=== PATIENT | female | born 1955 | race Caucasian/White ===

== ENCOUNTER 2019-06-06 08:56 | Day surgery (SDC) | payer BC ==
[~2019-06-06 08:56] MED LIST: Lactated Ringers 1,000 ML IV SCH; Lidocaine 1% 4 ML ONE; Lidocaine 1%/Sod Bicarbonate in NS 8.4% 1 ML Syringe IDERM PRN; Midazolam 1 MG/ML 2 ML SDV ONE; Propofol 200 MG/20 ML SDV ONE; Sodium Chloride 0.9% 10 ML Syringe FLUSH PRN; fentaNYL 100 MCG/2 ML SDV ONE
--- NOTE | 2019-06-06 09:33 | PCM.PREANE ---
Preanesthetic Assessment - Anesthesia/Transfusion/Family Hx Anesthesia History: Prior Anesthesia Without Reaction Family History of Anesthesia Reaction: No Transfusion History: No Prior Transfusion(s) Intubation History: Unknown - Review of Systems General: No Symptoms Pulmonary: No Symptoms, Cough (chronic for 3 years due to sinus drainage.) Cardiovascular: No Symptoms (elevated cholesterol) Gastrointestinal: No Symptoms (History of gastritis-improved) Neurological: No Symptoms (lower back pain into right hip: 4/10) Other: Reports: None (Idiopathic thrombocytopenia, ), Sinus Problem (sinus drainage) - Physical Assessment NPO Status Date: 06/06/19 NPO Status Time: 04:30 (prep) Vital Signs: HR: 74 BP: 138/83 Resp: 16 Sat: 98% Temp: 97.1 Height: 1.63 m Weight: 77.564 kg ASA Class: 2 Mental Status: Alert & Oriented x3 Airway Class: Mallampati = 2 Dentition: Reports: Normal Dentition, Caries Thyro-Mental Finger Breadths: 3 Mouth Opening Finger Breadths: 3 ROM/Head Extension: Full Lungs: Clear to Auscultation, Normal Respiratory Effort Cardiovascular: Regular Rate, Regular Rhythm, No Murmurs - Lab Values: All labs reviewed and noted and within acceptable ranges to proceed with scheduled procedure. - Allergies Allergies/Adverse Reactions: Allergies Allergy/AdvReac Type Severity Reaction Status Date / Time No Known Allergies Allergy Verified 06/03/19 13:49 - Anesthesia Plan Pre-Op Medication Ordered: None - Acknowledgements Anesthesia Type Planned: MAC Pt an Appropriate Candidate for the Planned Anesthesia: Yes Alternatives and Risks of Anesthesia Discussed w Pt/Guardian: Yes Pt/Guardian Understands and Agrees with Anesthesia Plan: Yes PreAnesthesia Questionnaire HEENT History: Reports: Impaired Vision, Other (See Below) Other HEENT History: glasses Cardiovascular History: Reports: High Cholesterol Respiratory History: Reports: None Gastrointestinal History: Reports: Gastritis 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 Musculoskeletal History: Reports: Arthritis Neurological History: Reports: None Psychiatric History: Reports: None Endocrine/Metabolic History: Reports: Vitamin D Deficiency Hematologic History: Reports: None Immunologic History: Reports: None Oncologic (Cancer) History: Reports: None Dermatologic History: Reports: Other (See Below) Other Dermatologic History: seborrheic keratosis - Past Surgical History Head Surgeries/Procedures: Reports: None Cardiovascular Surgical History: Reports: None Respiratory Surgical History: Reports: None GI Surgical History: Reports: None Female Surgical History: Reports: Hysterectomy Male Surgical History: Reports: None Endocrine Surgical History: Reports: None Neurological Surgical History: Reports: None Musculoskeletal Surgical History: Reports: Arthroscopic Knee Oncologic Surgical History: Reports: None Dermatological Surgical History: Reports: None - SUBSTANCE USE Smoking Status *Q: Never Smoker Recreational Drug Use History: No - HOME MEDS Home Medications: Home Meds Cholecalciferol (Vitamin D3) [Vitamin D3] 1,000 unit PO DAILY 06/03/19 [History] Glucosam/Chondr/Collagn/Hyalur [Glucosamine & Chondroitin Cap] 1 cap PO DAILY [History] Ibuprofen 600 mg PO TID 06/03/19 [History] Melatonin 3 mg PO DAILY 06/03/19 [History] Multivitamin [Daily Multiple Vitamin] 1 tab PO DAILY 06/03/19 [History] Phentermine HCl 37.5 mg PO DAILY 06/03/19 [History] atorvaSTATin Calcium [Lipitor] 20 mg PO DAILY 06/03/19 [History] - CURRENT (IN HOUSE) MEDS Current Meds: Current Medications Lactated Ringer's (Ringers, Lactated) 1,000 mls @ 125 mls/hr IV ASDIRECTED LOVE Stop: 06/06/19 23:00 Lidocaine/Sodium Bicarbonate (Buffered Lidocaine 1% In Ns 8.4%) 0.25 ml IDERM ONETIME PRN PRN Reason: Prior to IV Start Stop: 06/06/19 18:00 Sodium Chloride (Saline Flush) 10 ml FLUSH ASDIRECTED PRN PRN Reason: Keep Vein Open Stop: 06/06/19 18:00 Discontinued Medications Fentanyl (Sublimaze) Confirm Administered Dose 100 mcg .ROUTE .STK-MED ONE Stop: 06/06/19 07:28 Lidocaine HCl (Xylocaine-Mpf 1%) Confirm Administered Dose 4 mls @ as directed .ROUTE .STK-MED ONE Stop: 06/06/19 07:28 Midazolam HCl (Versed 1 Mg/Ml) Confirm Administered Dose 2 mg .ROUTE .STK-MED ONE Stop: 06/06/19 07:29 Propofol (Diprivan 20 Ml) Confirm Administered Dose 200 mg .ROUTE .STK-MED ONE Stop: 06/06/19 07:28
[2019-06-06] MEDS ORDERED: Propofol 200 MG/20 ML SDV ONE (10:55)
[2019-06-06] MEDS ORDERED: Lactated Ringers 1,000 ML ONE (11:08)
--- NOTE | 2019-06-06 11:42 | PCM.PRNOTE ---
- Free Text/Narrative Note: Date: 06/06/2019 Procedure: screening colonoscopy Endoscopist: Isreal Philip MD Findings: Prep seemed excellent. Extremely difficult sigmoid to navigate, could not traverse with the colonoscope despite various attempts at abdominal maneuvers and patient repositioning. Mild mucosal trauma noted from scope. After over 30 minutes of trying to advance, the procedure was stopped. There was a small flat lesion in the sigmoid that appeared consistent with a hyperplastic polyp that was not biopsied. Detailed report: The patient was taken to the endoscopy suite and placed in left lateral decubitus position. Timeout was performed, and monitored anesthesia initiated. Visual inspection of the anus showed no gross abnormalities, digital rectal exam was benign. The colonoscope was then advanced. Prep appeared to be excellent. Navigation with the scope proved to be very difficult, and at about 40 cm from the anal verge, the sigmoid became impossible to traverse. Multiple attempts were made to assist in advancing the scope, including abdominal maneuvers, patient repositioning into the supine position. Water dissection with the irrigation and air insufflation could not provide satisfactory view of the lumen at the sharp angle. After attempting to make progress for over 30 minutes, the procedure was stopped. There was mild mucosal trauma noted from the endoscope. No active bleeding noted. There was a small polypoid lesion in the sigmoid that appeared consistent with a hyperplastic polyp. This was not biopsied. No diverticulosis or other pathology was noted on withdrawal of the scope from the sigmoid. The patient tolerated the procedure well. I would recommend repeat colonoscopy within the year with referral to gastroenterology. Isreal Philip MD General Surgery
--- NOTE | 2019-06-06 11:48 | PCM48HPAN ---
Post Anesthesia Note - EVALUATION WITHIN 48HRS OF ANESTHETIC Vital Signs in Normal Range: Yes Patient Participated in Evaluation: Yes Respiratory Function Stable: Yes Airway Patent: Yes Cardiovascular Function Stable: Yes Hydration Status Stable: Yes Pain Control Satisfactory: Yes Nausea and Vomiting Control Satisfactory: Yes Mental Status Recovered: Yes Vital Signs: Last Vital Signs Temp 97.1 F 06/06/19 09:15 Pulse 74 06/06/19 09:15 Resp 16 06/06/19 09:15 BP 138/83 06/06/19 09:15 Pulse Ox 98 06/06/19 09:15 1135 85 14 97.1 104/68 94% - COMMENTS/OBSERVATIONS Free Text/Narrative:: complains of some abdominal discomfort
== END 2019-06-06 12:30 | disposition home or self-care (01) ==
LOC: JD.SDS 08:56
PROVIDERS: ATTEND Surgery
DX: Z12.11 Encounter for screening for malignant neoplasm of colon (principal); K63.9 Disease of intestine, unspecified; E78.5 Hyperlipidemia, unspecified; E55.9 Vitamin D deficiency, unspecified; M19.90 Unspecified osteoarthritis, unspecified site; Z79.899 Other long term (current) drug therapy
CPT/HCPCS: J2001; J2250; J2704; J3010; J7120

== ENCOUNTER 2020-02-02 16:30 | Inpatient (IN) | payer BC ==
--- NOTE | 2020-02-02 17:03 | EDM.PDOC ---
ED HPI GENERAL MEDICAL PROBLEM - General Chief Complaint: Lower Extremity Injury/Pain Stated Complaint: LT HIP INJURY Time Seen by Provider: 02/02/20 16:47 Source of Information: Reports: Patient History Limitations: Reports: No Limitations - History of Present Illness INITIAL COMMENTS - FREE TEXT/NARRATIVE: 64-year-old female presents to the ED for evaluation of left hip and groin pain. She was up at the [place] this morning and was walking down a flight of stairs backwards. She missed the last 2 stairs and fell hard landing on her left hip. She heard and felt a loud crack at that time. She was able to crawl back up the stairs into the home. She has all her grandchildren at the cabin and had to call for help. At present she is not able to weight-bear at all on the left hip. She denies hitting her head or hurting her neck ribs or upper extremities. She did twist her left ankle but she says it does not hurt at this time and there is minimal swelling only on the lateral aspect. He is unable to lift the leg off the gurney. Onset: Today, Sudden Onset Date: 02/02/20 Onset Time: 10:30 Duration: Hour(s):, Getting Worse Location: Reports: Lower Extremity, Left (Left groin and hip pain. No pain in the left lateral ankle) Quality: Reports: Ache Severity: Moderate Improves with: Reports: Rest Worsens with: Reports: Movement Context: Reports: Trauma (Tripped and fell while walking down a flight of stairs backwards. Missed the last 2 stairs falling hard on her left hip). 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 Left Groin Pain Score (Numeric/FACES): 5 - Related Data Allergies Allergy/AdvReac Type Severity Reaction Status Date / Time No Known Allergies Allergy Verified 06/06/19 09:31 Home Meds: Home Meds Cholecalciferol (Vitamin D3) [Vitamin D3] 1,000 unit PO BID 06/03/19 [History] Glucosam/Chondr/Collagn/Hyalur [Glucosamine & Chondroitin Cap] 1 cap PO BID 06/03/19 [History] Melatonin 3 mg PO DAILY 06/03/19 [History] Multivitamin [Daily Multiple Vitamin] 1 tab PO DAILY 06/03/19 [History] Phentermine HCl 37.5 mg PO ASDIRECTED 06/03/19 [History] atorvaSTATin Calcium [Lipitor] 20 mg PO BEDTIME 06/03/19 [History] Past Medical History HEENT History: Reports: Impaired Vision, Other (See Below) Other HEENT History: glasses Cardiovascular History: Reports: High Cholesterol Respiratory History: Reports: None Gastrointestinal History: Reports: Gastritis 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 As low as it ever went was down to 30,000.) Immunologic History: Reports: None Oncologic (Cancer) History: Reports: None Dermatologic History: Reports: Other (See Below) Other Dermatologic History: seborrheic keratosis - Infectious Disease History Infectious Disease History: Reports: Chicken Pox, Measles - Past Surgical History Head Surgeries/Procedures: Reports: None Cardiovascular Surgical History: Reports: None Respiratory Surgical History: Reports: None GI Surgical History: Reports: None Female Surgical History: Reports: Hysterectomy Endocrine Surgical History: Reports: None Neurological Surgical History: Reports: None Musculoskeletal Surgical History: Reports: Arthroscopic Knee Oncologic Surgical History: Reports: None Dermatological Surgical History: Reports: None Social & Family History - Tobacco Use Smoking Status *Q: Never Smoker - Caffeine Use Caffeine Use: Reports: Coffee, Soda, Tea - Recreational Drug Use Recreational Drug Use: No - Living Situation & Occupation Living situation: Reports: Occupation: Employed Review of Systems - Review of Systems Review Of Systems: See Below Constitutional: Reports: No Symptoms Eyes: Reports: Glasses Ears: Reports: No Symptoms Nose: Reports: No Symptoms Mouth/Throat: Reports: No Symptoms Respiratory: Reports: No Symptoms Cardiovascular: Reports: No Symptoms GI/Abdominal: Reports: No Symptoms Genitourinary: Reports: No Symptoms, Other (Patient has had a vaginal hysterectomy.) Musculoskeletal: Reports: Joint Pain (Knee pain off and on. She had recurrent patellofemoral dislocations and had a screw placed in her knee teenager. She has had a arthroscopy since with removal of debris.) Skin: Reports: No Symptoms Neurological: Reports: No Symptoms Psychiatric: Reports: No Symptoms ED EXAM, GENERAL - Physical Exam Exam: See Below Exam Limited By: No Limitations General Appearance: Alert, WD/WN, No Apparent Distress, Other (Very stoic lady. Temperature is 36.0 pulse is 70 and sinus respiratory is 20 with O2 sats of 99% room air BP slightly elevated at 149/77.) Eye Exam: Bilateral Eye: Normal Inspection, PERRL Throat/Mouth: Normal Inspection, Normal Lips, Normal Oropharynx Head: Atraumatic, Normocephalic Neck: Normal Inspection, Supple, Non-Tender, Full Range of Motion. No: Carotid Bruit, Lymphadenopathy (L), Lymphadenopathy (R) Respiratory/Chest: No Respiratory Distress, Lungs Clear, Normal Breath Sounds, No Accessory Muscle Use, Chest Non-Tender, Other (No rib pain on firm c ompression of her) Cardiovascular: Normal Peripheral Pulses, Regular Rate, Rhythm, No Edema, No Gallop, No Murmur ( thorax.), No Rub Peripheral Pulses: 3+: Carotid (L), Carotid (R), Posterior Tibial (L), Posterior Tibial (R), Dorsalis Pedis (L), Dorsalis Pedis (R) GI/Abdominal: Normal Bowel Sounds, Soft, Non-Tender, No Organomegaly, No Distention, No Abnormal Bruit, No Mass, Pelvis Stable Back Exam: Normal Inspection Extremities: Other (Patient has a normal right lower extremity. On the left side she is unable to lift the leg off the gurney on her own volition because of pain in the groin. She also can no longer rotate the leg at the groin i.e. internal and external rotate. There is no pain on firm compression of the ischial tuberosities on exam. There is pain on firm compression of the left lateral hip.) Neurological: Alert, Oriented, CN II-XII Intact, Normal Cognition Psychiatric: Normal Affect, Normal Mood Skin Exam: Warm, Dry, Intact, Normal Color, No Rash Course - Vital Signs Last Recorded V/S: Last Vital Signs Temp 36.0 C L 02/02/20 16:53 Pulse 70 02/02/20 16:53 Resp 20 02/02/20 16:53 BP 149/77 H 02/02/20 16:53 Pulse Ox 99 02/02/20 16:53 - Orders/Labs/Meds Orders: Active Orders 24 hr Category Date Time Status CORONAVIRUS COVID-19 LADI [MOLEC] Stat Lab 02/02/20 18:23 Received CULTURE MRSA [RM] Stat Lab 02/02/20 18:42 Ordered PRO B-TYPE NATRIUR PEPT,BNPPRO [CHEM] Stat Lab 02/02/20 18:05 Received TYPE AND SCREEN [BBK] Stat Lab 02/02/20 18:20 Ordered Labs: Laboratory Tests 02/02/20 02/02/20 02/02/20 Range/Units 18:05 18:05 18:08 WBC 9.03 (3.98-10.04) K/mm3 RBC 4.94 (3.98-5.22) M/mm3 Hgb 14.6 (11.2-15.7) gm/dl Hct 44.2 (34.1-44.9) % MCV 89.5 (79.4-94.8) fl MCH 29.6 (25.6-32.2) pg MCHC 33.0 (32.2-35.5) g/dl RDW Std Deviation 47.5 H (36.4-46.3) fL Plt Count 145 L (182-369) K/mm3 MPV 11.8 (9.4-12.3) fl Neut % (Auto) 68.6 (34.0-71.1) % Lymph % (Auto) 20.9 (19.3-51.7) % [place] % (Auto) 9.0 (4.7-12.5) % Eos % (Auto) 0.6 L (0.7-5.8) Baso % (Auto) 0.7 (0.1-1.2) % Neut # (Auto) 6.20 H (1.56-6.13) K/mm3 Lymph # (Auto) 1.89 (1.18-3.74) K/mm3 [place] # (Auto) 0.81 H (0.24-0.36) K/mm3 Eos # (Auto) 0.05 (0.04-0.36) K/mm3 Baso # (Auto) 0.06 (0.01-0.08) K/mm3 PT 11.2 (9.7-12.0) SECONDS INR 1.05 APTT 24 (22-31) SECONDS Sodium 141 (136-145) mEq/L Potassium 3.6 (3.5-5.1) mEq/L Chloride 104 (98-107) mEq/L Carbon Dioxide 28 (21-32) mEq/L Anion Gap 12.6 (5-15) BUN 12 (7-18) mg/dL Creatinine 0.7 (0.55-1.02) mg/dL Est Cr Clr Drug Dosing 71.96 mL/min Estimated GFR (MDRD) > 60 (>60) mL/min BUN/Creatinine Ratio 17.1 (14-18) Glucose 94 (80-115) mg/dL Calcium 9.1 (8.5-10.1) mg/dL Magnesium 2.1 (1.8-2.4) mg/dl Total Bilirubin 0.8 (0.2-1.0) mg/dL AST 22 (15-37) U/L ALT 30 (14-59) U/L Alkaline Phosphatase 77 (46-116) U/L C-Reactive Protein <0.2 (<1.0) mg/dL Total Protein 8.0 (6.4-8.2) g/dl Albumin 4.3 (3.4-5.0) g/dl Globulin 3.7 gm/dL Albumin/Globulin Ratio 1.2 (1-2) Meds: Medications Discontinued Medications Generic Name Dose Route Start Last Admin Trade Name Freq PRN Reason Stop Dose Admin Cyclobenzaprine HCl 10 mg 02/02/20 18:06 02/02/20 18:27 Flexeril PO 02/02/20 18:07 10 mg ONETIME ONE Administration Hydromorphone HCl 0.5 mg 02/02/20 18:31 02/02/20 18:37 Dilaudid IVPUSH 02/02/20 18:32 0.5 mg ONETIME ONE Administration Dextrose/Sodium Chloride 1,000 mls @ 125 mls/hr 02/02/20 17:45 Dextrose 5%-Normal Saline IV ASDIRECTED LOVE Ondansetron HCl 4 mg 02/02/20 18:31 02/02/20 18:37 Zofran Odt PO 02/02/20 18:32 4 mg ONETIME ONE Administration - Radiology Interpretation Free Text/Narrative:: 64-year-old female presents to the ED for evaluation of left hip pain and groin pain. She was walking down a flight of stairs at the cabin [place] the [place] this morning when she missed the last 2 stairs and fell hard to the ground landing primarily on her left hip. She did suffer a minor minor inversion injury to her left ankle as well but clinically has no fracture in this area. She is unable to weight-bear on the left side. She is also unable to lift the leg off the gurney on her own volition. Plan she will have an x-ray of her pelvis and an x- ray of her left femur. Offered analgesia but at this time she declined. - Re-Assessments/Exams Free Text/Narrative Re-Assessment/Exam: 02/02/20 17:38 x-ray of the pelvis confirms a fracture through the high neck of the left femur. It is confirmed on x-ray of the femur which shows a screw in her left knee. Fractures in the pelvis are identified. Patient will now have preoperative lab work including a chest x-ray ECG and COVID screen. Due to lack of beds at our hospital she will have to be transferred to [place] tentatively [facility] for bone and joint surgery 02/02/20 18:06 I did discuss possible transfer to [facility] in [place] but they are on diversion and could not accept the patient in transfer. I therefore spoke with Dr. Bragg on-call orthopedic surgeon and he believes he has time to do a total hip on her tomorrow at noon. We found that there is a bed on the obstetrical floor where the patient can stay overnight and in preparation for surgery tomorrow. Therefore this will be the plan. She will require total hip replacement tomorrow at noon tentatively. Patient is requesting Flexeril 10 mg by mouth at this time for his muscle spasm. She did not want any narcotic analgesic at this time. Dr. Bragg has been notified and is in agreement and he will see her in the morning. 02/02/20 18:25 test x-ray done per portable technique suggests normal cardiac silhouette. However it suggests diffuse vascular congestion of both lungs. This may be due to overpenetration by portable technique. I will have a BNP carried out to reassure that she does not have any congestive failure.White count is 9.03. Differential is 68.6% neutrophils on the auto differential. Hemoglobin is 14.6 with hematocrit of 44.2 platelet count is 145,000( history of idiopathic thrombocytopenia) . 02/02/20 18:34 and has decided to opt for a little bit of analgesia since she has to use the bedpan. We will give her Zofran 4 mg IV and Dilaudid 0.5 mg IV. 02/02/20 18:46 PT is 11.2 with an INR of 1.05. PTT is 24. Sodium is 141 with a potassium of 3.6 chloride is 104 with a bicarb of 28. Anion gap is 12.6 BUN is 12 with a creatinine of 0.7 and a GFR greater than 60. Glucose is 94. Calcium is 9.1. Magnesium is 2.1. Liver function is normal. C-reactive protein is less than 0.2 total protein is 8.0 . Albumin fraction is 4.3. Urinalysis is pending. Write the bridge orders so the patient can be admitted to the obstetrical floor. Dr. Bragg will see her in consultation in the mail messenger contractor. Departure - Departure Time of Disposition: 18:52 Disposition: Admitted As Inpatient 68 Condition: Fair Clinical Impression: Femoral neck fracture Qualifiers: Encounter type: initial encounter Fracture type: closed Laterality: left Qualified Code(s): S72.002A - Fracture of unspecified part of neck of left femur, initial encounter for closed fracture Sprain of ankle, calcaneofibular ligament Qualifiers: Encounter type: initial encounter Laterality: left Qualified Code(s): S93.412A - Sprain of calcaneofibular ligament of left ankle, initial encounter - Discharge Information *PRESCRIPTION DRUG MONITORING PROGRAM REVIEWED*: Not Applicable *COPY OF PRESCRIPTION DRUG MONITORING REPORT IN PATIENT MAEGAN: Not Applicable Referrals: Maisha Zepeda MD [Primary Care Provider] - Forms: ED Department Discharge Sepsis Event Note (ED) - Evaluation Sepsis Screening Result: No Definite Risk - Focused Exam Vital Signs: Vital Signs Temp Pulse Resp BP Pulse Ox 02/02/20 16:53 36.0 C L 70 20 149/77 H 99 - My Orders Last 24 Hours: My Active Orders 02/02/20 18:05 PRO B-TYPE NATRIUR PEPT,BNPPRO [CHEM] Stat 02/02/20 18:23 CORONAVIRUS COVID-19 LADI [MOLEC] Stat - Assessment/Plan Last 24 Hours: My Active Orders 02/02/20 18:05 PRO B-TYPE NATRIUR PEPT,BNPPRO [CHEM] Stat 02/02/20 18:23 CORONAVIRUS COVID-19 LADI [MOLEC] Stat
--- NOTE | 2020-02-02 17:34 | CR ---
Left femur: AP and lateral views of the left femur were obtained. Comparison: No previous femur study is available. Subcapital fracture is noted within the left hip. Mild degenerative change is noted within the knee. Single surgical screw is seen within the proximal tibia. Osteopenia is noted. Impression: 1. Subcapital fracture within the left hip. 2. Other nonacute findings as noted above. Diagnostic code #3 This report was dictated in MDT
--- NOTE | 2020-02-02 17:35 | CR ---
Pelvis: AP view of the pelvis was obtained. Comparison: Prior pelvis study of 07/15/19. Subcapital fracture within the left hip is noted. Joint space narrowing is noted within the right hip. Osteopenia is seen. No additional abnormality is noted. Impression: 1. Subcapital fracture within the left hip. 2. Other findings as noted above. Diagnostic code #3 This report was dictated in MDT
[2020-02-02] MEDS ORDERED: Dextrose 5%-0.9% NaCl 1,000 ML IV SCH (17:45)
[2020-02-02] MEDS ORDERED: Cyclobenzaprine 10 MG Tab PO ONE (18:06)
[2020-02-02] MEDS ORDERED: Ondansetron 4 MG Tab.DIS PO ONE (18:31)
[2020-02-02] MEDS ORDERED: HYDROmorphone 0.5 MG/0.5 ML Syringe IVPUSH ONE (18:31)
--- NOTE | 2020-02-02 18:35 | CR ---
Chest: Portable view of the chest was obtained. Comparison: No previous chest imaging is available. Heart is felt to be slightly enlarged. Pulmonary vessels may be minimally congested. Lungs otherwise are clear. Bony structures are unremarkable. Impression: 1. Slight cardiomegaly and questionable mild pulmonary vascular congestion. This may be chronic. 2. Nothing acute is otherwise seen on portable chest x-ray. Diagnostic code #3 This report was dictated in MDT
--- NOTE | 2020-02-02 19:51 | PCM.PREANE ---
Preanesthetic Assessment - Anesthesia/Transfusion/Family Hx Anesthesia History: Prior Anesthesia Without Reaction Family History of Anesthesia Reaction: No Transfusion History: No Prior Transfusion(s) Intubation History: Unknown - Review of Systems General: No Symptoms Pulmonary: No Symptoms (ETOH: socially), Cough (History of cough due to sinus drainage-improved) Cardiovascular: No Symptoms (Elevated cholesterol) Gastrointestinal: No Symptoms (History of gastritis) Neurological: No Symptoms (History of lower back pain- currently none) Other: Reports: None (History of idiopathic thrombocytopenia), Sinus Problem (History of sinus drainage) - Physical Assessment NPO Status Date: 02/03/20 NPO Status Time: 00:05 Vital Signs: Last Vital Signs Temp 36.0 C L 02/02/20 16:53 Pulse 70 02/02/20 16:53 Resp 20 02/02/20 16:53 BP 149/77 H 02/02/20 16:53 Pulse Ox 99 02/02/20 16:53 Height: 1.63 m Weight: 70.307 kg ASA Class: 2 Mental Status: Alert & Oriented x3 Airway Class: Mallampati = 2 Dentition: Reports: Normal Dentition, Protivin(s), Caries Thyro-Mental Finger Breadths: 3 Mouth Opening Finger Breadths: 3 ROM/Head Extension: Full Lungs: Clear to Auscultation, Normal Respiratory Effort Cardiovascular: Regular Rate, Regular Rhythm, No Murmurs - Lab Values: Laboratory Last Values WBC 9.03 K/mm3 (3.98-10.04) 02/02/20 18:08 RBC 4.94 M/mm3 (3.98-5.22) 02/02/20 18:08 Hgb 14.6 gm/dl (11.2-15.7) 02/02/20 18:08 Hct 44.2 % (34.1-44.9) 02/02/20 18:08 MCV 89.5 fl (79.4-94.8) 02/02/20 18:08 MCH 29.6 pg (25.6-32.2) 02/02/20 18:08 MCHC 33.0 g/dl (32.2-35.5) 02/02/20 18:08 RDW Std Deviation 47.5 fL (36.4-46.3) H 02/02/20 18:08 Plt Count 145 K/mm3 (182-369) L 02/02/20 18:08 MPV 11.8 fl (9.4-12.3) 02/02/20 18:08 Neut % (Auto) 68.6 % (34.0-71.1) 02/02/20 18:08 Lymph % (Auto) 20.9 % (19.3-51.7) 02/02/20 18:08 [place] % (Auto) 9.0 % (4.7-12.5) 02/02/20 18:08 Eos % (Auto) 0.6 (0.7-5.8) L 02/02/20 18:08 Baso % (Auto) 0.7 % (0.1-1.2) 02/02/20 18:08 Neut # (Auto) 6.20 K/mm3 (1.56-6.13) H 02/02/20 18:08 Lymph # (Auto) 1.89 K/mm3 (1.18-3.74) 02/02/20 18:08 [place] # (Auto) 0.81 K/mm3 (0.24-0.36) H 02/02/20 18:08 Eos # (Auto) 0.05 K/mm3 (0.04-0.36) 02/02/20 18:08 Baso # (Auto) 0.06 K/mm3 (0.01-0.08) 02/02/20 18:08 PT 11.2 SECONDS (9.7-12.0) 02/02/20 18:05 INR 1.05 02/02/20 18:05 APTT 24 SECONDS (22-31) 02/02/20 18:05 Sodium 141 mEq/L (136-145) 02/02/20 18:05 Potassium 3.6 mEq/L (3.5-5.1) 02/02/20 18:05 Chloride 104 mEq/L (98-107) 02/02/20 18:05 Carbon Dioxide 28 mEq/L (21-32) 02/02/20 18:05 Anion Gap 12.6 (5-15) 02/02/20 18:05 BUN 12 mg/dL (7-18) 02/02/20 18:05 Creatinine 0.7 mg/dL (0.55-1.02) 02/02/20 18:05 Est Cr Clr Drug Dosing 71.96 mL/min 02/02/20 18:05 Estimated GFR (MDRD) > 60 mL/min (>60) 02/02/20 18:05 BUN/Creatinine Ratio 17.1 (14-18) 02/02/20 18:05 Glucose 94 mg/dL (80-115) 02/02/20 18:05 Calcium 9.1 mg/dL (8.5-10.1) 02/02/20 18:05 Magnesium 2.1 mg/dl (1.8-2.4) 02/02/20 18:05 Total Bilirubin 0.8 mg/dL (0.2-1.0) 02/02/20 18:05 AST 22 U/L (15-37) 02/02/20 18:05 ALT 30 U/L (14-59) 02/02/20 18:05 Alkaline Phosphatase 77 U/L (46-116) 02/02/20 18:05 C-Reactive Protein <0.2 mg/dL (<1.0) 02/02/20 18:05 NT-Pro-B Natriuret Pep 72 pg/mL (0-125) 02/02/20 18:05 Total Protein 8.0 g/dl (6.4-8.2) 02/02/20 18:05 Albumin 4.3 g/dl (3.4-5.0) 02/02/20 18:05 Globulin 3.7 gm/dL 02/02/20 18:05 Albumin/Globulin Ratio 1.2 (1-2) 02/02/20 18:05 Blood Type A POSITIVE 02/02/20 18:05 Gel Antibody Screen Negative 02/02/20 18:05 Above labs reviewed and noted and within acceptable ranges to proceed with scheduled procedure. - Imaging/EKG Impressions: EKG:SR rate=64, diffuse T wave flattening in leads V2-V5, mild left axis deviation noted. CXR: Slight cardiomegaly and questionable pulmonary vasculature congestion. (awaiting results of BNP) - Allergies Allergies/Adverse Reactions: Allergies Allergy/AdvReac Type Severity Reaction Status Date / Time No Known Allergies Allergy Verified 06/06/19 09:31 - Anesthesia Plan Pre-Op Medication Ordered: None - Acknowledgements Anesthesia Type Planned: Spinal Pt an Appropriate Candidate for the Planned Anesthesia: Yes Alternatives and Risks of Anesthesia Discussed w Pt/Guardian: Yes Pt/Guardian Understands and Agrees with Anesthesia Plan: Yes PreAnesthesia Questionnaire HEENT History: Reports: Impaired Vision, Other (See Below) Other HEENT History: glasses Cardiovascular History: Reports: High Cholesterol Respiratory History: Reports: None Gastrointestinal History: Reports: Gastritis 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 As low as it ever went was down to 30,000.) Immunologic History: Reports: None Oncologic (Cancer) History: Reports: None Dermatologic History: Reports: Other (See Below) Other Dermatologic History: seborrheic keratosis - Infectious Disease History Infectious Disease History: Reports: Chicken Pox, Measles - Past Surgical History Head Surgeries/Procedures: Reports: None Cardiovascular Surgical History: Reports: None Respiratory Surgical History: Reports: None GI Surgical History: Reports: None Female Surgical History: Reports: Hysterectomy Endocrine Surgical History: Reports: None Neurological Surgical History: Reports: None Musculoskeletal Surgical History: Reports: Arthroscopic Knee Oncologic Surgical History: Reports: None Dermatological Surgical History: Reports: None - SUBSTANCE USE Smoking Status *Q: Never Smoker Recreational Drug Use History: No - HOME MEDS Home Medications: Home Meds Cholecalciferol (Vitamin D3) [Vitamin D3] 1,000 unit PO BID 06/03/19 [History] Glucosam/Chondr/Collagn/Hyalur [Glucosamine & Chondroitin Cap] 1 cap PO BID 06/03/19 [History] Melatonin 3 mg PO DAILY 06/03/19 [History] Multivitamin [Daily Multiple Vitamin] 1 tab PO DAILY 06/03/19 [History] Phentermine HCl 37.5 mg PO ASDIRECTED 06/03/19 [History] atorvaSTATin Calcium [Lipitor] 20 mg PO BEDTIME 06/03/19 [History] - CURRENT (IN HOUSE) MEDS Current Meds: Current Medications Dextrose/Sodium Chloride (Dextrose 5%-Normal Saline) 1,000 mls @ 125 mls/hr IV ASDIRECTED LOVE Discontinued Medications Cyclobenzaprine HCl (Flexeril) 10 mg PO ONETIME ONE Stop: 02/02/20 18:07 Last Admin: 02/02/20 18:27 Dose: 10 mg Documented by: Hydromorphone HCl (Dilaudid) 0.5 mg IVPUSH ONETIME ONE Stop: 02/02/20 18:32 Last Admin: 02/02/20 18:37 Dose: 0.5 mg Documented by: Ondansetron HCl (Zofran Odt) 4 mg PO ONETIME ONE Stop: 02/02/20 18:32 Last Admin: 02/02/20 18:37 Dose: 4 mg Documented by:
[2020-02-02] MEDS ORDERED: HYDROmorphone 0.5 MG/0.5 ML Syringe IVPUSH PRN (21:04)
[2020-02-02] MEDS ORDERED: Ondansetron 4 MG/2 ML SDV IVPUSH PRN (21:04)
[2020-02-02] MEDS ORDERED: Dextrose 5%-0.9% NaCl with KCl 1,000 ML IV SCH (21:15)
[2020-02-02] MEDS ORDERED: Zolpidem 10 MG Tab PO SCH (23:00)
[2020-02-03] MEDS ORDERED: Cyclobenzaprine 10 MG Tab PO PRN (08:48)
[2020-02-03] MEDS ORDERED: Acetaminophen/oxyCODONE 325-5 MG Tab PO PRN (08:48)
[2020-02-03] MEDS ORDERED: Naloxone 0.4 MG/ML SDV IVPUSH PRN (08:49)
[2020-02-03] MEDS ORDERED: Sennosides 8.6 MG Tab PO PRN (08:49)
[2020-02-03] MEDS ORDERED: Bisacodyl 5 MG Tab PO PRN (08:49)
[2020-02-03] MEDS ORDERED: Ondansetron 4 MG/2 ML SDV IVPUSH PRN ×2 (08:49→13:15)
[2020-02-03] MEDS ORDERED: Magnesium Hydroxide 400 MG/5 ML Susp 30 ML Cup PO PRN (08:49)
[2020-02-03] MEDS ORDERED: ceFAZolin 1 GM Vial ONE (11:03)
--- NOTE | 2020-02-03 11:16 | PCM.CONS ---
H&P History of Present Illness - General Date of Service: 02/03/20 Admit Problem/Dx: Admission Diagnosis/Problem Admission Diagnosis/Problem Hip fracture requiring operative repair Source of Information: Patient History Limitations: Reports: No Limitations - History of Present Illness Initial Comments - Free Text/Narative: The patient is a 64 yo female. She presented to the ED on 02/02/2020 after experiencing a fall while going up stairs at her [place] and falling backward, landing on her hip. She heard loud crack and had severe weakness in left hip, crawled back up her stairs to call for help. This happened at about 9AM yesterday. She did not hit her head. She denies pain anywhere else. She is not on blood thinning medications, no anticoagulation. She denies history of internal bleeding or blood clots. No familial history of blood clots. She does not use CPAP or oxygen at home. The patient has hypercholesterolemia but otherwise has no cardiac history. The patient denies dizziness, no chest pain, no shortness of breath. She does have allergic rhinitis but otherwise has not been ill. No fevers or chills. No foot or ankle swelling. Last BM was on 01/31. She denies blood or dark stools. Left Groin Pain Score (Numeric/FACES): 5 - Related Data Allergies/Adverse Reactions: Allergies Allergy/AdvReac Type Severity Reaction Status Date / Time No Known Allergies Allergy Verified 02/03/20 00:07 Home Medications: Home Meds Cholecalciferol (Vitamin D3) [Vitamin D3] 1,000 unit PO BID 06/03/19 [History] Glucosam/Chondr/Collagn/Hyalur [Glucosamine & Chondroitin Cap] 1 cap PO BID 06/03/19 [History] Melatonin 3 mg PO DAILY 06/03/19 [History] Multivitamin [Daily Multiple Vitamin] 1 tab PO DAILY 06/03/19 [History] Phentermine HCl 37.5 mg PO ASDIRECTED 06/03/19 [History] atorvaSTATin Calcium [Lipitor] 20 mg PO BEDTIME 06/03/19 [History] Acetaminophen [Tylenol] 1,000 mg PO ONETIME 02/03/20 [History] Past Medical History HEENT History: Reports: Impaired Vision, Other (See Below) Other HEENT History: glasses Cardiovascular History: Reports: High Cholesterol Respiratory History: Reports: None Other Respiratory History: Chronic cough d/t sinuses Gastrointestinal History: Reports: Gastritis Genitourinary History: Reports: None [employer] History: Reports: None Other OB/BYN History: Previous pregnancies x2 Musculoskeletal History: Reports: Arthritis Neurological History: Reports: None Psychiatric History: Reports: None Endocrine/Metabolic History: Reports: Vitamin D Deficiency Hematologic History: Reports: None, Idiopathic Thrombocytopenia (Platelet count about 3 years ago was 90,000. As low as it ever went was down to 30,000.) Immunologic History: Reports: None Oncologic (Cancer) History: Reports: None Dermatologic History: Reports: Other (See Below) Other Dermatologic History: seborrheic keratosis - Infectious Disease History Infectious Disease History: Reports: Chicken Pox, Measles - Past Surgical History Head Surgeries/Procedures: Reports: None Cardiovascular Surgical History: Reports: None Respiratory Surgical History: Reports: None GI Surgical History: Reports: None Female Surgical History: Reports: Hysterectomy Endocrine Surgical History: Reports: None Neurological Surgical History: Reports: None Musculoskeletal Surgical History: Reports: Arthroscopic Knee Oncologic Surgical History: Reports: None Dermatological Surgical History: Reports: None Social & Family History - Family History Family Medical History: Noncontributory - Tobacco Use Smoking Status *Q: Never Smoker - Caffeine Use Caffeine Use: Reports: Coffee, Soda, Tea - Recreational Drug Use Recreational Drug Use: No - Living Situation & Occupation Living situation: Reports: Occupation: Employed H&P Review of Systems - Review of Systems: Review Of Systems: Comprehensive ROS is negative, except as noted in HPI. Exam - Exam Exam: See Below - Vital Signs Vital Signs: Last Vital Signs Temp 98.1 F 02/03/20 04:25 Pulse 85 02/03/20 04:25 Resp 16 02/03/20 04:25 BP 115/65 02/03/20 04:25 Pulse Ox 97 02/03/20 04:25 Weight: 165 lb - Exam General: Alert, Oriented, Cooperative HEENT: Conjunctiva Clear, EOMI, Mucosa Moist & [place], Pupils Equal, Pupils Reactive Lungs: Clear to Auscultation, Normal Respiratory Effort. No: Crackles, Rales, Rhonchi, Wheezing Cardiovascular: Regular Rate, Regular Rhythm. No: Systolic Murmur, Diastolic Murmur, Rubs Extremities: No Pedal Edema, Normal Capillary Refill Peripheral Pulses: 2+: Posterior Tibial (L), Posterior Tibial (R) Skin: Warm, Dry, Intact - Patient Data Lab Results Last 24 hrs: Laboratory Results - last 24 hr 02/02/20 02/02/20 02/02/20 Range/Units 18:05 18:05 18:05 WBC (3.98-10.04) K/mm3 RBC (3.98-5.22) M/mm3 Hgb (11.2-15.7) gm/dl Hct (34.1-44.9) % MCV (79.4-94.8) fl MCH (25.6-32.2) pg MCHC (32.2-35.5) g/dl RDW Std Deviation (36.4-46.3) fL Plt Count (182-369) K/mm3 MPV (9.4-12.3) fl Neut % (Auto) (34.0-71.1) % Lymph % (Auto) (19.3-51.7) % [place] % (Auto) (4.7-12.5) % Eos % (Auto) (0.7-5.8) Baso % (Auto) (0.1-1.2) % Neut # (Auto) (1.56-6.13) K/mm3 Lymph # (Auto) (1.18-3.74) K/mm3 [place] # (Auto) (0.24-0.36) K/mm3 Eos # (Auto) (0.04-0.36) K/mm3 Baso # (Auto) (0.01-0.08) K/mm3 PT 11.2 (9.7-12.0) SECONDS INR 1.05 APTT 24 (22-31) SECONDS Sodium 141 (136-145) mEq/L Potassium 3.6 (3.5-5.1) mEq/L Chloride 104 (98-107) mEq/L Carbon Dioxide 28 (21-32) mEq/L Anion Gap 12.6 (5-15) BUN 12 (7-18) mg/dL Creatinine 0.7 (0.55-1.02) mg/dL Est Cr Clr Drug Dosing 71.96 mL/min Estimated GFR (MDRD) > 60 (>60) mL/min BUN/Creatinine Ratio 17.1 (14-18) Glucose 94 (80-115) mg/dL Calcium 9.1 (8.5-10.1) mg/dL Magnesium 2.1 (1.8-2.4) mg/dl Total Bilirubin 0.8 (0.2-1.0) mg/dL AST 22 (15-37) U/L ALT 30 (14-59) U/L Alkaline Phosphatase 77 (46-116) U/L C-Reactive Protein <0.2 (<1.0) mg/dL NT-Pro-B Natriuret Pep (0-125) pg/mL Total Protein 8.0 (6.4-8.2) g/dl Albumin 4.3 (3.4-5.0) g/dl Globulin 3.7 gm/dL Albumin/Globulin Ratio 1.2 (1-2) SARS Virus RNA (PCR) (NEGATIVE) MRSA (PCR) Blood Type A POSITIVE Gel Antibody Screen Negative 02/02/20 02/02/20 02/02/20 Range/Units 18:05 18:08 18:23 WBC 9.03 (3.98-10.04) K/mm3 RBC 4.94 (3.98-5.22) M/mm3 Hgb 14.6 (11.2-15.7) gm/dl Hct 44.2 (34.1-44.9) % MCV 89.5 (79.4-94.8) fl MCH 29.6 (25.6-32.2) pg MCHC 33.0 (32.2-35.5) g/dl RDW Std Deviation 47.5 H (36.4-46.3) fL Plt Count 145 L (182-369) K/mm3 MPV 11.8 (9.4-12.3) fl Neut % (Auto) 68.6 (34.0-71.1) % Lymph % (Auto) 20.9 (19.3-51.7) % [place] % (Auto) 9.0 (4.7-12.5) % Eos % (Auto) 0.6 L (0.7-5.8) Baso % (Auto) 0.7 (0.1-1.2) % Neut # (Auto) 6.20 H (1.56-6.13) K/mm3 Lymph # (Auto) 1.89 (1.18-3.74) K/mm3 [place] # (Auto) 0.81 H (0.24-0.36) K/mm3 Eos # (Auto) 0.05 (0.04-0.36) K/mm3 Baso # (Auto) 0.06 (0.01-0.08) K/mm3 PT (9.7-12.0) SECONDS INR APTT (22-31) SECONDS Sodium (136-145) mEq/L Potassium (3.5-5.1) mEq/L Chloride (98-107) mEq/L Carbon Dioxide (21-32) mEq/L Anion Gap (5-15) BUN (7-18) mg/dL Creatinine (0.55-1.02) mg/dL Est Cr Clr Drug Dosing mL/min Estimated GFR (MDRD) (>60) mL/min BUN/Creatinine Ratio (14-18) Glucose (80-115) mg/dL Calcium (8.5-10.1) mg/dL Magnesium (1.8-2.4) mg/dl Total Bilirubin (0.2-1.0) mg/dL AST (15-37) U/L ALT (14-59) U/L Alkaline Phosphatase (46-116) U/L C-Reactive Protein (<1.0) mg/dL NT-Pro-B Natriuret Pep 72 (0-125) pg/mL Total Protein (6.4-8.2) g/dl Albumin (3.4-5.0) g/dl Globulin gm/dL Albumin/Globulin Ratio (1-2) SARS Virus RNA (PCR) Negative (NEGATIVE) MRSA (PCR) Blood Type Gel Antibody Screen 02/02/20 Range/Units 19:52 WBC (3.98-10.04) K/mm3 RBC (3.98-5.22) M/mm3 Hgb (11.2-15.7) gm/dl Hct (34.1-44.9) % MCV (79.4-94.8) fl MCH (25.6-32.2) pg MCHC (32.2-35.5) g/dl RDW Std Deviation (36.4-46.3) fL Plt Count (182-369) K/mm3 MPV (9.4-12.3) fl Neut % (Auto) (34.0-71.1) % Lymph % (Auto) (19.3-51.7) % [place] % (Auto) (4.7-12.5) % Eos % (Auto) (0.7-5.8) Baso % (Auto) (0.1-1.2) % Neut # (Auto) (1.56-6.13) K/mm3 Lymph # (Auto) (1.18-3.74) K/mm3 [place] # (Auto) (0.24-0.36) K/mm3 Eos # (Auto) (0.04-0.36) K/mm3 Baso # (Auto) (0.01-0.08) K/mm3 PT (9.7-12.0) SECONDS INR APTT (22-31) SECONDS Sodium (136-145) mEq/L Potassium (3.5-5.1) mEq/L Chloride (98-107) mEq/L Carbon Dioxide (21-32) mEq/L Anion Gap (5-15) BUN (7-18) mg/dL Creatinine (0.55-1.02) mg/dL Est Cr Clr Drug Dosing mL/min Estimated GFR (MDRD) (>60) mL/min BUN/Creatinine Ratio (14-18) Glucose (80-115) mg/dL Calcium (8.5-10.1) mg/dL Magnesium (1.8-2.4) mg/dl Total Bilirubin (0.2-1.0) mg/dL AST (15-37) U/L ALT (14-59) U/L Alkaline Phosphatase (46-116) U/L C-Reactive Protein (<1.0) mg/dL NT-Pro-B Natriuret Pep (0-125) pg/mL Total Protein (6.4-8.2) g/dl Albumin (3.4-5.0) g/dl Globulin gm/dL Albumin/Globulin Ratio (1-2) SARS Virus RNA (PCR) (NEGATIVE) MRSA (PCR) Negative Blood Type Gel Antibody Screen Result Diagrams: 02/02/20 18:08 02/02/20 18:05 Sepsis Event Note - Evaluation Sepsis Screening Result: No Definite Risk Consult PN Assessment/Plan (1) Femoral neck fracture SNOMED Code(s): 5595330 Code(s): S72.009A - FRACTURE OF UNSP PART OF NECK OF UNSP FEMUR, INIT Current Visit: No Qualifiers: Encounter type: initial encounter Fracture type: closed Laterality: left Qualified Code(s): S72.002A - Fracture of unspecified part of neck of left femur, initial encounter for closed fracture Assessment:: Low cardiac risk for surgery- Estimated risk probability for perioperative LA or Cardiac arrest is 0.02% The patient's pain is controlled Vitals normal, HR controlled Mg, potassium, sodium normal EKG shows normal sinus rhythm, flattened T waves, no ST elevation or depression, unremarkable EKG (2) Hypercholesterolemia SNOMED Code(s): 17956642 Code(s): E78.00 - PURE HYPERCHOLESTEROLEMIA, UNSPECIFIED Current Visit: Yes Assessment:: Lipid profile in My 2019 shows: Triglycerides 211, Cholesterol 167, LDL 95, HDL 40 Patient is on atorvastatin 20mg oral qpm at home (3) Osteopenia determined by x-ray SNOMED Code(s): 815517175 Code(s): M85.80 - OTH DISRD OF BONE DENSITY AND STRUCTURE, UNSPECIFIED SITE Current Visit: Yes Assessment:: Home medication of Vitamin D 2,000 u daily Problem List Initiated/Reviewed/Updated: Yes Plan: Left femur fracture after fall - The patient is medically cleared for surgery - ORIF today at noon per orthopedic surgery - DVT prophylaxis per ortho as stated below - Pain control described below Hypercholesterolemia - Continue atorvastatin 20mg qpm tomorrow night - Will recheck lipid profile, has been >1yr - Will check HgbA1c for further risk stratification Osteopenia - Continue Vitamin D supplementation Pain Control - acetaminophen 650mg q6h for mild pain, Oxycodone/acetaminophen 5/325 1-2 tabs q4h as needed for moderate pain, morphine 1-2mg IV q2h as needed severe pain PROPHYLAXIS GI - per ortho, pepcid 20mg BID DVT - per ortho, aspirin 325mg oral BID, will watch h/h and platelet counts Cardiovascular- EKG and cardiac enzymes after surgery SOCIAL Lives at home, no tobacco use, fully independent CODE STATUS Full Code DISPOSITION Patient is admitted to hospital under Dr. Bragg, orthopedic surgeon, hospitalist team consulted for medical clearance. Patient is cleared for surgery today.
[2020-02-03] MEDS ORDERED: Midazolam 1 MG/ML 2 ML SDV ONE (11:36)
[2020-02-03] MEDS ORDERED: fentaNYL 100 MCG/2 ML SDV ONE (11:36)
[2020-02-03] MEDS ORDERED: Propofol 200 MG/20 ML SDV ONE (11:36)
[2020-02-03] MEDS ORDERED: Morphine PF 10 MG/10 ML SDV ONE (11:38)
[2020-02-03] MEDS ORDERED: Bupivacaine 0.75% 30 ML SDV ONE (11:38)
[2020-02-03] MEDS ORDERED: EPINEPHrine 1 MG/ML SDV ONE (11:41)
[2020-02-03] MEDS ORDERED: Ketamine 500 mg/10 ML MDV ONE (11:45)
[2020-02-03] MEDS ORDERED: Acetaminophen 325 MG Tab PO STA (11:48)
[2020-02-03] MEDS ORDERED: Pregabalin 25 MG Cap PO STA (11:48)
[2020-02-03] MEDS ORDERED: oxyCODONE ER 10 MG TAB.ER PO STA (11:49)
[2020-02-03] MEDS: ceFAZolin 1 GM Vial ONE ×2 (12:52→13:27)
[2020-02-03] MEDS: Bupivacaine 0.25% 10 ML SDV ONE ×2 (12:52→13:31)
[2020-02-03] MEDS: Iodine/Sodium Iodide 2% Tincture 30 ML Bottle ONE ×2 (12:52→13:26)
[2020-02-03] MEDS: Vancomycin 1 GM SDV ONE ×2 (12:53→13:33)
[2020-02-03] MEDS: Morphine 8 MG, EPINEPHrine 0.3 MG, Cefuroxime 750 MG, Ketorolac 30 MG, Sodium Chloride ... PRN ×10 (12:53→13:32)
[2020-02-03] MEDS ORDERED: fentaNYL 100 MCG/2 ML SDV IVPUSH PRN (13:15)
[2020-02-03] MEDS ORDERED: diphenhydrAMINE 50 MG/ML SDV IVPUSH PRN (13:15)
[2020-02-03] MEDS ORDERED: Ondansetron 4 MG/2 ML SDV ONE (13:26)
[2020-02-03] MEDS ORDERED: Morphine 2 MG/ML SYRINGE IVPUSH PRN (14:00)
--- NOTE | 2020-02-03 14:13 | PCM.POSTAN ---
POST ANESTHESIA ASSESSMENT - MENTAL STATUS Mental Status: Alert, Oriented - VITAL SIGNS Vital Signs: Last Vital Signs Temp 97.8 F 02/03/20 14:02 Pulse 75 02/03/20 14:02 Resp 14 02/03/20 14:02 BP 91/55 L 02/03/20 14:02 Pulse Ox 93 L 02/03/20 14:02 - RESPIRATORY Respiratory Status: Respiratory Rate WNL, Airway Patent, O2 Saturation Stable, Supplemental Oxygen - CARDIOVASCULAR CV Status: Pulse Rate WNL, Blood Pressure Stable - GASTROINTESTINAL GI Status: No Symptoms - PAIN Pain Score: 0 (post SAB) - POST OP HYDRATION Hydration Status: Adequate & Stable
--- NOTE | 2020-02-03 16:22 | CR ---
Pelvis and right hip: AP view of the pelvis was obtained as well as crosstable lateral views left hip. Comparison: Prior pelvis study of 02/02/20. Left hip prosthesis is seen. Components are aligned. This hip prosthesis has been recently placed as soft tissue air is seen. Degenerative change is seen within the right hip. No acute finding is otherwise seen. Impression: 1. Recently placed left hip prosthesis. 2. Degenerative change of the right hip. 3. Nothing acute is appreciated. Diagnostic code #2 This report was dictated in MDT
[2020-02-03] MEDS: ceFAZolin 2 GM in Premix Bag 1 BAG IV SCH (20:02)
[2020-02-03] MEDS ORDERED: Zolpidem 10 MG Tab PO SCH (21:00)
[2020-02-03] MEDS ORDERED: Simvastatin 20 MG Tab PO SCH (21:00)
[2020-02-03] MEDS ORDERED: Melatonin 3 MG Tab PO PRN ×2 (21:00→21:16)
[2020-02-03] MEDS ORDERED: Lactated Ringers 1,000 ML IV ONE (21:15)
[2020-02-03] MEDS: Famotidine 20 MG Tab PO SCH (22:27)
[2020-02-03] MEDS: Docusate Sodium 100 MG Cap PO SCH (22:27)
[2020-02-03] MEDS: Cholecalciferol (Vitamin D3) 25 MCG Tab PO SCH (22:27)
[2020-02-03] MEDS: Ketorolac 15 MG/ML SDV IVPUSH PRN (23:03)
[2020-02-04] MEDS: ceFAZolin 2 GM in Premix Bag 1 BAG IV SCH ×2 (03:40→11:40)
[2020-02-04] MEDS: Ketorolac 15 MG/ML SDV IVPUSH PRN ×2 (06:07→12:08)
[2020-02-04 07:15] LABS: HEMOGLOBIN A1C 5.8 % (4.50-6.20)
[2020-02-04] MEDS: Famotidine 20 MG Tab PO SCH (09:00)
[2020-02-04] MEDS ORDERED: Multivitamins,Therapeutic Tab PO SCH (09:00)
[2020-02-04] MEDS ORDERED: Aspirin 325 MG Tab.EC PO SCH (09:00)
[2020-02-04] MEDS: Cholecalciferol (Vitamin D3) 25 MCG Tab PO SCH (09:18)
[2020-02-04] MEDS: Docusate Sodium 100 MG Cap PO SCH (09:18)
--- NOTE | 2020-02-04 13:38 | PCM.CONSN ---
- General Info Date of Service: 02/04/20 Admission Dx/Problem (Free Text): Admission Diagnosis/Problem Admission Diagnosis/Problem Hip fracture requiring operative repair Subjective Update: Patient had a low-grade fever 100.6. She has had dry cough for approximately 3 years, but otherwise feels fine. She has been up and walking and doing her exercise. Functional Status: Reports: Pain Controlled - Review of Systems General: Reports: Fever HEENT: Reports: No Symptoms Pulmonary: Reports: Cough Cardiovascular: Reports: No Symptoms Gastrointestinal: Reports: No Symptoms Musculoskeletal: Reports: No Symptoms Skin: Reports: No Symptoms Psychiatric: Reports: No Symptoms - Patient Data Vitals - Most Recent: Last Vital Signs Temp 99.6 F 02/04/20 10:51 Pulse 94 02/04/20 09:10 Resp 15 02/04/20 11:00 BP 123/72 02/04/20 09:10 Pulse Ox 99 02/04/20 11:00 Weight - Most Recent: 74.843 kg I&O - Last 24 Hours: Intake & Output 02/03/20 02/04/20 02/04/20 22:59 06:59 14:59 Intake Total 1500 Output Total 730 842 8188 Balance 700 -850 -1900 Lab Results Last 24 Hours: Laboratory Results - last 24 hr 02/04/20 02/04/20 02/04/20 Range/Units 05:32 05:32 05:32 WBC 5.93 (3.98-10.04) K/mm3 RBC 3.61 L (3.98-5.22) M/mm3 Hgb 10.5 L D (11.2-15.7) gm/dl Hct 33.8 L (34.1-44.9) % MCV 93.6 D (79.4-94.8) fl MCH 29.1 (25.6-32.2) pg MCHC 31.1 L (32.2-35.5) g/dl RDW Std Deviation 49.5 H (36.4-46.3) fL Plt Count 89 L (182-369) K/mm3 MPV 12.6 H (9.4-12.3) fl Sodium 137 (136-145) mEq/L Potassium 3.8 (3.5-5.1) mEq/L Chloride 103 (98-107) mEq/L Carbon Dioxide 28 (21-32) mEq/L Anion Gap 9.8 (5-15) BUN 7 (7-18) mg/dL Creatinine 0.8 (0.55-1.02) mg/dL Est Cr Clr Drug Dosing 62.96 mL/min Estimated GFR (MDRD) > 60 (>60) mL/min BUN/Creatinine Ratio 8.8 L (14-18) Glucose 101 (80-115) mg/dL Hemoglobin A1c 5.80 (4.50-6.20) % Calcium 8.0 L (8.5-10.1) mg/dL Creatine Kinase 526 H (26-192) U/L Troponin I < 0.017 (0.00-0.056) ng/mL Triglycerides 160 H (<150) mg/dL Cholesterol 108 (<200) mg/dL LDL Cholesterol Direct 52 (<100) mg/dL HDL Cholesterol 35.0 L (40-59) mg/dL Med Orders - Current: Current Medications Aspirin (Ecotrin) 325 mg PO BID [facility] Last Admin: 02/04/20 09:00 Dose: 325 mg Documented by: Bisacodyl (Dulcolax) 5 mg PO DAILY PRN PRN Reason: Constipation Cholecalciferol (Vitamin D3) 25 mcg PO BID [facility] Last Admin: 02/04/20 09:18 Dose: Not Given Documented by: Cyclobenzaprine HCl (Flexeril) 10 mg PO TID PRN PRN Reason: Spasms Docusate Sodium (Colace) 100 mg PO BID [facility] Last Admin: 02/04/20 09:18 Dose: Not Given Documented by: Famotidine (Pepcid) 20 mg PO Q12H [facility] Last Admin: 02/04/20 09:00 Dose: 20 mg Documented by: Magnesium Hydroxide (Milk Of Magnesia) 30 ml PO BID PRN PRN Reason: Constipation Melatonin (Melatonin) 3 mg PO BEDTIME PRN PRN Reason: Insomnia Morphine Sulfate (Morphine) 1 - 2 mg IVPUSH Q2H PRN PRN Reason: Pain (severe 7-10) Multivitamins (Thera) 1 each PO DAILY [facility] Last Admin: 02/04/20 09:18 Dose: Not Given Documented by: Naloxone HCl (Narcan) 0.1 mg IVPUSH Q5M PRN PRN Reason: Oversedation Ondansetron HCl (Zofran) 4 mg IVPUSH Q6H PRN PRN Reason: Nausea/Vomiting Oxycodone/Acetaminophen (Percocet 325-5 Mg) 1 - 2 tab PO Q4H PRN PRN Reason: Pain Senna (Senna) 8.6 mg PO BID PRN PRN Reason: Constipation Simvastatin (Zocor) 20 mg PO BEDTIME [facility] Last Admin: 02/03/20 22:28 Dose: Not Given Documented by: Discontinued Medications Acetaminophen (Tylenol) 975 mg PO ONETIME STA Stop: 02/03/20 11:49 Last Admin: 02/03/20 12:00 Dose: 975 mg Documented by: Bupivacaine HCl (Sensorcaine-Mpf 0.25%) Confirm Administered Dose 30 ml .ROUTE .STK-MED ONE Stop: 02/03/20 11:04 Last Admin: 02/03/20 13:31 Dose: 30 ml Documented by: Bupivacaine HCl (Sensorcaine-Mpf 0.75%) Confirm Administered Dose 30 ml .ROUTE .STK-MED ONE Stop: 02/03/20 11:39 Cefazolin Sodium (Ancef) Confirm Administered Dose 2 gm .ROUTE .STK-MED ONE Stop: 02/03/20 11:04 Cefazolin Sodium (Ancef) Confirm Administered Dose 2 gm .ROUTE .STK-MED ONE Stop: 02/03/20 11:42 Last Admin: 02/03/20 13:27 Dose: 2 gm Documented by: Morphine Sulfate 8 mg/Epinephrine HCl 0.3 mg/Cefuroxime Sodium 750 mg/Ketorolac Tromethamine 30 mg/Sodium Chloride 7.9 ml 0 mg .XX ASDIRECTED PRN PRN Reason: Pain Stop: 02/03/20 16:00 Last Admin: 02/03/20 13:32 Dose: 788.3 mg Documented by: Cyclobenzaprine HCl (Flexeril) 10 mg PO ONETIME ONE Stop: 02/02/20 18:07 Last Admin: 02/02/20 18:27 Dose: 10 mg Documented by: Diphenhydramine HCl (Benadryl) 25 mg IVPUSH Q6H PRN PRN Reason: Pruritis Stop: 02/03/20 18:00 Epinephrine HCl (Adrenalin) Confirm Administered Dose 1 mg .ROUTE .STK-MED ONE Stop: 02/03/20 11:42 Fentanyl (Sublimaze) Confirm Administered Dose 100 mcg .ROUTE .STK-MED ONE Stop: 02/03/20 11:37 Fentanyl (Sublimaze) 50 mcg IVPUSH Q5M PRN PRN Reason: Pain Stop: 02/03/20 18:00 Glycopyrrolate () Confirm Administered Dose 1 mg .ROUTE .STK-MED ONE Stop: 02/03/20 15:15 Hydromorphone HCl (Dilaudid) 0.5 mg IVPUSH ONETIME ONE Stop: 02/02/20 18:32 Last Admin: 02/02/20 18:37 Dose: 0.5 mg Documented by: Hydromorphone HCl (Dilaudid) 0.5 mg IVPUSH Q2H PRN PRN Reason: Pain Last Admin: 02/03/20 04:41 Dose: 0.5 mg Documented by: Dextrose/Sodium Chloride (Dextrose 5%-Normal Saline) 1,000 mls @ 125 [facility]ls[facility] Last Admin: 02/02/20 19:51 Dose: 125 mls/hr Documented by: Potassium Chloride/Dextrose/Sod Cl (D5 Ns With 20 Meq Kcl) 1,000 mls @ 100 mls/hr IV ASDIRECTED [facility] Last Admin: 02/03/20 05:19 Dose: 100 mls/hr Documented by: Cefazolin Sodium/Dextrose 2 gm (/ Premix) 50 mls @ 100 mls/hr IV Q8H [facility] Stop: 02/04/20 12:29 Last Admin: 02/04/20 11:40 Dose: 100 mls/hr Documented by: Lactated Ringer's (Ringers, Lactated) 1,000 mls @ 500 mls/hr IV ONETIME ONE Stop: 02/03/20 23:14 Last Admin: 02/03/20 21:26 Dose: 500 mls/hr Documented by: Iodine (Iodine 2% Mild Tincture) Confirm Administered Dose 30 ml .ROUTE .STK-MED ONE Stop: 02/03/20 11:04 Last Admin: 02/03/20 13:26 Dose: 18 ml Documented by: Ketamine HCl (Ketalar) Confirm Administered Dose 500 mg .ROUTE .STK-MED ONE Stop: 02/03/20 11:46 Ketorolac Tromethamine (Toradol) 15 mg IVPUSH Q6H PRN PRN Reason: Pain Last Admin: 02/04/20 12:08 Dose: 15 mg Documented by: Melatonin (Melatonin) 6 mg PO BEDTIME PRN PRN Reason: Insomnia Midazolam HCl (Versed 1 Mg/Ml) Confirm Administered Dose 2 mg .ROUTE .STK-MED ONE Stop: 02/03/20 11:37 Miscellaneous Medication (Phenylephrine 1 Mg/10 Ml-Ns) Confirm Administered Dose 1 mg IV .STK-MED ONE Stop: 02/03/20 12:23 Morphine Sulfate (Duramorph Pf) Confirm Administered Dose 10 mg .ROUTE .STK-MED ONE Stop: 02/03/20 11:39 Ondansetron HCl (Zofran Odt) 4 mg PO ONETIME ONE Stop: 02/02/20 18:32 Last Admin: 02/02/20 18:37 Dose: 4 mg Documented by: Ondansetron HCl (Zofran) 4 mg IVPUSH Q4H PRN PRN Reason: Nausea Ondansetron HCl (Zofran) 4 mg IVPUSH ONETIME PRN PRN Reason: Nausea/Vomiting Stop: 02/03/20 18:00 Ondansetron HCl (Zofran) Confirm Administered Dose 8 mg .ROUTE .STK-MED ONE Stop: 02/03/20 13:27 Oxycodone HCl (Oxycontin) 10 mg PO ONETIME STA Stop: 02/03/20 11:50 Last Admin: 02/03/20 12:01 Dose: 10 mg Documented by: Pregabalin (Lyrica) 50 mg PO DAILY [facility] Stop: 02/03/20 11:49 Last Admin: 02/03/20 12:00 Dose: 50 mg Documented by: Propofol (Diprivan 20 Ml) Confirm Administered Dose 600 mg .ROUTE .STK-MED ONE Stop: 02/03/20 11:37 Tranexamic Acid (Cyklokapron) Confirm Administered Dose 1,000 mg .ROUTE .STK-MED ONE Stop: 02/03/20 11:04 Last Admin: 02/03/20 13:34 Dose: 1,000 mg Documented by: Vancomycin HCl (Vancomycin) Confirm Administered Dose 1 gm .ROUTE .STK-MED ONE Stop: 02/03/20 11:04 Last Admin: 02/03/20 13:33 Dose: 1 gm Documented by: Zolpidem Tartrate (Ambien) 10 mg PO BEDTIME [facility] Zolpidem Tartrate (Ambien) 10 mg PO BEDTIME [facility] Last Admin: 02/02/20 22:56 Dose: 10 mg Documented by: - Exam General: Alert, Oriented HEENT: Pupils Equal, Mucous Membr. Moist/[place] Neck: Supple Lungs: Clear to Auscultation, Normal Respiratory Effort Cardiovascular: Regular Rate, Regular Rhythm GI/Abdominal Exam: Normal Bowel Sounds, Soft, Non-Tender, No Organomegaly, No Distention, No Abnormal Bruit, Pelvis Stable Extremities: Normal Inspection, Normal Range of Motion, Non-Tender, No Pedal Jay ma, Normal Capillary Refill Neurological: No New Focal Deficit Sepsis Event Note - Evaluation Sepsis Screening Result: No Definite Risk - Focused Exam Vital Signs: Vital Signs Temp Temp Pulse Pulse Resp BP BP 02/04/20 11:00 15 02/04/20 10:51 99.6 F 02/04/20 10:00 15 02/04/20 09:10 100.6 F 94 14 123/72 02/04/20 08:00 14 02/04/20 06:59 02/04/20 06:45 83 129/90 02/04/20 06:25 98.9 F 02/04/20 06:00 101.5 F H 100 16 139/79 02/04/20 05:00 02/04/20 04:00 99.3 F 75 14 108/59 L 02/04/20 03:36 103 H 108/59 L 02/04/20 03:00 02/04/20 02:00 Pulse Ox 02/04/20 11:00 99 02/04/20 10:51 02/04/20 10:00 98 02/04/20 09:10 100 02/04/20 08:00 96 02/04/20 06:59 96 02/04/20 06:45 96 02/04/20 06:25 02/04/20 06:00 100 02/04/20 05:00 98 02/04/20 04:00 95 02/04/20 03:36 100 02/04/20 03:00 98 02/04/20 02:00 98 Consult PN Assessment/Plan Procedures: Procedures ASSAY THYROID STIM HORMONE (10/18/18) BREAST TOMOSYNTHESIS BI (04/13/18) COMP SCREEN MAMMOGRAM ADD-ON (04/16/15) COMPLETE CBC AUTOMATED (10/13/16) COMPLETE CBC W/AUTO DIFF WBC (10/18/18) COMPREHEN METABOLIC PANEL (10/18/18) DIAGNOSTIC SIGMOIDOSCOPY (06/06/19) LIPID PANEL (10/18/18) ROUTINE VENIPUNCTURE (10/18/18) SARS-COV2 COVID-19 AMP PRB (01/10/20) SCR MAMMO BI INCL CAD (04/13/18) STREP A AG IA (09/27/15) URINALYSIS AUTO W/SCOPE (10/15/15) VITAMIN D 25 HYDROXY (10/18/18) X-RAY EXAM L-S SPINE 2/3 VWS (07/15/19) X-RAY EXAM OF PELVIS (07/15/19) (1) Hypercholesterolemia SNOMED Code(s): 95430597 Code(s): E78.00 - PURE HYPERCHOLESTEROLEMIA, UNSPECIFIED Current Visit: Yes (2) Osteopenia determined by x-ray SNOMED Code(s): 137464675 Code(s): M85.80 - OT DISRD OF BONE DENSITY AND STRUCTURE, UNSPECIFIED SITE Current Visit: Yes (3) Femoral neck fracture SNOMED Code(s): 9960840 Code(s): S72.009A - FRACTURE OF UNSP PART OF NECK OF UNSP FEMUR, INIT Current Visit: No Qualifiers: Encounter type: initial encounter Fracture type: closed Laterality: left Qualified Code(s): S72.002A - Fracture of unspecified part of neck of left femur, initial encounter for closed fracture Problem List Initiated/Reviewed/Updated: Yes My Orders Last 24 Hours: My Active Orders 02/03/20 21:14 Bladder Scan [RC] ASDIRECTED Communication Order [RC] ASDIRECTED Notify Provider Intake and Out [RC] ASDIRECTED Urinary Catheter Assessment [RC] ASDIRECTED 02/03/20 21:15 Insert Urinary Catheter [OM.PC] ASDIRECTED 02/03/20 21:16 Melatonin 3 mg PO BEDTIME PRN Plan: Left femur fracture after fall -Postop day 1 for ORIF - DVT prophylaxis per ortho as stated below - Pain control per primary team Hypercholesterolemia - Continue atorvastatin 20mg qpm tomorrow night - Cholesterol 108, LDL 52, HDL 35, triglycerides 160 postop day 1 -Hemoglobin A1c 5.8 T-max 100.6 -Likely secondary to atelectasis -No new respiratory symptoms -Patient states she will follow-up as outpatient or return if symptoms worsen. Osteopenia - Continue Vitamin D supplementation PROPHYLAXIS GI - per ortho, pepcid 20mg BID DVT - per ortho, aspirin 325mg oral BID, will watch h/h and platelet counts Cardiovascular- EKG and cardiac enzymes after surgery SOCIAL Lives at home, no tobacco use, fully independent CODE STATUS Full Code DISPOSITION Patient is medically stable and can be discharged home per medical team.
--- NOTE | 2020-02-04 23:58 | PCM48HPAN ---
Post Anesthesia Note - EVALUATION WITHIN 48HRS OF ANESTHETIC Vital Signs in Normal Range: Yes Patient Participated in Evaluation: No (Discharged home earlier today. No complication noted per nursing staff. ) Respiratory Function Stable: Yes Airway Patent: Yes Cardiovascular Function Stable: Yes Hydration Status Stable: Yes Pain Control Satisfactory: Yes Nausea and Vomiting Control Satisfactory: Yes Mental Status Recovered: Yes Vital Signs: Last Vital Signs Temp 37.6 C 02/04/20 10:51 Pulse 94 02/04/20 09:10 Resp 15 02/04/20 11:00 BP 123/72 02/04/20 09:10 Pulse Ox 99 02/04/20 11:00
--- NOTE | 2020-02-06 07:02 | PCM.SURGPN ---
- General Info Date of Service: 02/04/20 POD#: 1 Functional Status: Reports: Pain Controlled, Tolerating Diet, Ambulating, Urinating - Patient Data Vitals - Most Recent: Last Vital Signs Temp 37.6 C 02/04/20 10:51 Pulse 94 02/04/20 09:10 Resp 15 02/04/20 11:00 BP 123/72 02/04/20 09:10 Pulse Ox 99 02/04/20 11:00 Weight - Most Recent: 74.843 kg Med Orders - Current: Current Medications Discontinued Medications Acetaminophen (Tylenol) 975 mg PO ONETIME STA Stop: 02/03/20 11:49 Last Admin: 02/03/20 12:00 Dose: 975 mg Documented by: Aspirin (Ecotrin) 325 mg PO BID [facility] Last Admin: 02/04/20 09:00 Dose: 325 mg Documented by: Bisacodyl (Dulcolax) 5 mg PO DAILY PRN PRN Reason: Constipation Bupivacaine HCl (Sensorcaine-Mpf 0.25%) Confirm Administered Dose 30 ml .ROUTE .STK-MED ONE Stop: 02/03/20 11:04 Last Admin: 02/03/20 13:31 Dose: 30 ml Documented by: Bupivacaine HCl (Sensorcaine-Mpf 0.75%) Confirm Administered Dose 30 ml .ROUTE .STK-MED ONE Stop: 02/03/20 11:39 Cefazolin Sodium (Ancef) Confirm Administered Dose 2 gm .ROUTE .STK-MED ONE Stop: 02/03/20 11:04 Cefazolin Sodium (Ancef) Confirm Administered Dose 2 gm .ROUTE .STK-MED ONE Stop: 02/03/20 11:42 Last Admin: 02/03/20 13:27 Dose: 2 gm Documented by: Cholecalciferol (Vitamin D3) 25 mcg PO BID [facility] Last Admin: 02/04/20 09:18 Dose: Not Given Documented by: Morphine Sulfate 8 mg/Epinephrine HCl 0.3 mg/Cefuroxime Sodium 750 mg/Ketorolac Tromethamine 30 mg/Sodium Chloride 7.9 ml 0 mg .XX ASDIRECTED PRN PRN Reason: Pain Stop: 02/03/20 16:00 Last Admin: 02/03/20 13:32 Dose: 788.3 mg Documented by: Cyclobenzaprine HCl (Flexeril) 10 mg PO ONETIME ONE Stop: 02/02/20 18:07 Last Admin: 02/02/20 18:27 Dose: 10 mg Documented by: Cyclobenzaprine HCl (Flexeril) 10 mg PO TID PRN PRN Reason: Spasms Diphenhydramine HCl (Benadryl) 25 mg IVPUSH Q6H PRN PRN Reason: Pruritis Stop: 02/03/20 18:00 Docusate Sodium (Colace) 100 mg PO BID [facility] Last Admin: 02/04/20 09:18 Dose: Not Given Documented by: Epinephrine HCl (Adrenalin) Confirm Administered Dose 1 mg .ROUTE .STK-MED ONE Stop: 02/03/20 11:42 Famotidine (Pepcid) 20 mg PO Q12H [facility] Last Admin: 02/04/20 09:00 Dose: 20 mg Documented by: Fentanyl (Sublimaze) Confirm Administered Dose 100 mcg .ROUTE .STK-MED ONE Stop: 02/03/20 11:37 Fentanyl (Sublimaze) 50 mcg IVPUSH Q5M PRN PRN Reason: Pain Stop: 02/03/20 18:00 Glycopyrrolate () Confirm Administered Dose 1 mg .ROUTE .STK-MED ONE Stop: 02/03/20 15:15 Hydromorphone HCl (Dilaudid) 0.5 mg IVPUSH ONETIME ONE Stop: 02/02/20 18:32 Last Admin: 02/02/20 18:37 Dose: 0.5 mg Documented by: Hydromorphone HCl (Dilaudid) 0.5 mg IVPUSH Q2H PRN PRN Reason: Pain Last Admin: 02/03/20 04:41 Dose: 0.5 mg Documented by: Dextrose/Sodium Chloride (Dextrose 5%-Normal Saline) 1,000 mls @ 125 mls/hr IV ASDIRECTED [facility] Last Admin: 02/02/20 19:51 Dose: 125 mls/hr Documented by: Potassium Chloride/Dextrose/Sod Cl (D5 Ns With 20 Meq Kcl) 1,000 mls @ 100 mls/hr IV ASDIRECTED [facility] Last Admin: 02/03/20 05:19 Dose: 100 mls/hr Documented by: Cefazolin Sodium/Dextrose 2 gm (/ Premix) 50 mls @ 100 mls/hr IV Q8H [facility] Stop: 02/04/20 12:29 Last Admin: 02/04/20 11:40 Dose: 100 mls/hr Documented by: Lactated Ringer's (Ringers, Lactated) 1,000 mls @ 500 mls/hr IV ONETIME ONE Stop: 02/03/20 23:14 Last Admin: 02/03/20 21:26 Dose: 500 mls/hr Documented by: Iodine (Iodine 2% Mild Tincture) Confirm Administered Dose 30 ml .ROUTE .STK-MED ONE Stop: 02/03/20 11:04 Last Admin: 02/03/20 13:26 Dose: 18 ml Documented by: Ketamine HCl (Ketalar) Confirm Administered Dose 500 mg .ROUTE .STK-MED ONE Stop: 02/03/20 11:46 Ketorolac Tromethamine (Toradol) 15 mg IVPUSH Q6H PRN PRN Reason: Pain Last Admin: 02/04/20 12:08 Dose: 15 mg Documented by: Magnesium Hydroxide (Milk Of Magnesia) 30 ml PO BID PRN PRN Reason: Constipation Melatonin (Melatonin) 6 mg PO BEDTIME PRN PRN Reason: Insomnia Melatonin (Melatonin) 3 mg PO BEDTIME PRN PRN Reason: Insomnia Midazolam HCl (Versed 1 Mg/Ml) Confirm Administered Dose 2 mg .ROUTE .STK-MED ONE Stop: 02/03/20 11:37 Miscellaneous Medication (Phenylephrine 1 Mg/10 Ml-Ns) Confirm Administered Dose 1 mg IV .STK-MED ONE Stop: 02/03/20 12:23 Morphine Sulfate (Morphine) 1 - 2 mg IVPUSH Q2H PRN PRN Reason: Pain (severe 7-10) Morphine Sulfate (Duramorph Pf) Confirm Administered Dose 10 mg .ROUTE .STK-MED ONE Stop: 02/03/20 11:39 Multivitamins (Thera) 1 each PO DAILY [facility] Last Admin: 02/04/20 09:18 Dose: Not Given Documented by: Naloxone HCl (Narcan) 0.1 mg IVPUSH Q5M PRN PRN Reason: Oversedation Ondansetron HCl (Zofran Odt) 4 mg PO ONETIME ONE Stop: 02/02/20 18:32 Last Admin: 02/02/20 18:37 Dose: 4 mg Documented by: Ondansetron HCl (Zofran) 4 mg IVPUSH Q4H PRN PRN Reason: Nausea Ondansetron HCl (Zofran) 4 mg IVPUSH Q6H PRN PRN Reason: Nausea/Vomiting Ondansetron HCl (Zofran) 4 mg IVPUSH ONETIME PRN PRN Reason: Nausea/Vomiting Stop: 02/03/20 18:00 Ondansetron HCl (Zofran) Confirm Administered Dose 8 mg .ROUTE .STK-MED ONE Stop: 02/03/20 13:27 Oxycodone HCl (Oxycontin) 10 mg PO ONETIME [facility] Stop: 02/03/20 11:50 Last Admin: 02/03/20 12:01 Dose: 10 mg Documented by: Oxycodone/Acetaminophen (Percocet 325-5 Mg) 1 - 2 tab PO Q4H PRN PRN Reason: Pain Pregabalin (Lyrica) 50 mg PO DAILY [facility] Stop: 02/03/20 11:49 Last Admin: 02/03/20 12:00 Dose: 50 mg Documented by: Propofol (Diprivan 20 Ml) Confirm Administered Dose 600 mg .ROUTE .STK-MED ONE Stop: 02/03/20 11:37 Senna (Senna) 8.6 mg PO BID PRN PRN Reason: Constipation Simvastatin (Zocor) 20 mg PO BEDTIME [facility] Last Admin: 02/03/20 22:28 Dose: Not Given Documented by: Tranexamic Acid (Cyklokapron) Confirm Administered Dose 1,000 mg .ROUTE .STK-MED ONE Stop: 02/03/20 11:04 Last Admin: 02/03/20 13:34 Dose: 1,000 mg Documented by: Vancomycin HCl (Vancomycin) Confirm Administered Dose 1 gm .ROUTE .STK-MED ONE Stop: 02/03/20 11:04 Last Admin: 02/03/20 13:33 Dose: 1 gm Documented by: Zolpidem Tartrate (Ambien) 10 mg PO BEDTIME [facility] Zolpidem Tartrate (Ambien) 10 mg PO BEDTIME [facility] Last Admin: 02/02/20 22:56 Dose: 10 mg Documented by: - Exam Physical Findings Comment:: patient is neurovascularly intact, able to fully weight bear and ambulate independently Sepsis Event Note - Evaluation Sepsis Screening Result: No Definite Risk - Problem List Review Problem List Initiated/Reviewed/Updated: Yes - Plan Plan (Free Text/Narrative):: A: POD#1 left total hip arthroplasty P: -discharge patient home -ASA 325mg daily for DVT prophylaxis -continue with COREY Gore for pain control although patient only taking tylenol and ibuprofen in hospital -PT -F/U on
--- NOTE | 2020-02-06 07:05 | PCM.DCSUM1 ---
Discharge Summary - Hospital Course Free Text/Narrative:: Patient was admitted for displaced left femoral neck fracture. She underwent left total hip arthroplasty and met all PT goals on POD#1. Patient was only taking pain Tylenol and ibuprofen for pain. She was ambulating independently and was having no difficulties at POD#1 and was discharged home with her . Total hip post op protocol was given to the patient. Patient was concerned about her low platelets and did not want ASA 325mg twice daily so the first week we will do once daily and then have her start twice daily after that. - Discharge Data Discharge Date: 02/04/20 Discharge Disposition: Home, Self-Care 01 Condition: Good - Referral to Home Health Primary Care Physician: Maisha Zepeda MD - Discharge Diagnosis/Problem(s) (1) Femoral neck fracture SNOMED Code(s): 2234270 ICD Code: S72.009A - FRACTURE OF UNSP PART OF NECK OF UNSP FEMUR, INIT Status: Acute Qualifiers: Encounter type: initial encounter Fracture type: closed Laterality: left Qualified Code(s): S72.002A - Fracture of unspecified part of neck of left femur, initial encounter for closed fracture - Patient Summary/Data Operative Procedure(s) Performed: left total hip arthroplasty Complications: none Consults: Consultations 02/02/ 08:20 Consult to Physician [CONS] Routine 02/03/20 08:47 OT Evaluation and Treatment [CONS] Routine PT Evaluation and Treatment [CONS] Routine - Patient Instructions Diet: Usual Diet as Tolerated Activity: Apply Ice, As Tolerated, Elevate Extremity, Full Weight Bearing Activity, Other: Follow the total hip precautions. Driving: Do Not Drive Showering/Bathing: May Shower Showering/Bathing, Other: No soaking in a pool, tub, whirlpool, schultz. Wound/Incision Care: Keep Operative Site/Wound Site Clean and Dry, Do NOT Change Dressing Notify Provider of: Fever, Increased Pain, Swelling and Redness, Drainage, Nausea and/or Vomiting Other/Special Instructions: Please get up and moving around EVERY HOUR while awake. This helps to prevent blood clots. Please use your walker and have help with mobility as needed. Take a short walk in your home every hour while awake. Please take 325mg aspirin TWICE daily. The aspirin is being used for blood clot prevention and not for pain management so please do not miss a dose of the medication. You have been prescribed Pepcid to protect your stomach while using aspirin. You may also use a medication like Prilosec or Nexium. At home, please complete the exercises that you learned during the Hospital stay. Schedule for physical therapy. Follow the total hip precautions. You may place as much weight through your surgical limb as you tolerate. Use the pain medication as needed. The medication may cause drowsiness and constipation. Contact your primary care provider for instructions if you are constipated. You may use a stool softener like docusate sodium or Colace 100mg twice daily and/or a laxative like Miralax daily for constipation. Increase your water and fiber intake while you are using the pain medication. Please discontinue use of the prescription pain medication as soon as able. The goal is to use the least amount of prescription pain medication as possible and to discontinue use of the prescription pain medication as soon as possible. Please do not use other medications that may cause drowsiness (other pain medications, anxiety pills, cold medications, sleeping pills, etc) while using the prescription pain medication. Do not use alcohol while using the pain medication. You may use acetaminophen or Tylenol for pain management, however, please ensure you are not using over 4000 mg or 4 grams of acetaminophen per day from all sources. Your pain medication has 325mg of acetaminophen per tablet. At this time, please do not use ibuprofen (Motrin, Advil) or naproxen (Aleve) for pain management as you are using the aspirin. When the aspirin course is completed in 5 weeks, you could use ibuprofen or naproxen for pain management (if this is allowed by your primary care provider). Wear the COREY hose during the day and you may remove these at night. Elevate the limb to decrease swelling. Place ice to the area often. Place a towel between your skin and the blue pad. Use the incentive spirometer often. Take deep breaths throughout the day. Please keep the dressing in place until follow-up. Notify the Clinic if the dressing becomes saturated. Increase your protein intake while you are healing. If you have diabetes or have been instructed by your primary care provider to check your blood sugars, please closely monitor your blood sugars and notify your primary care provider with abnormal values. Elevated blood sugars increases the risk of infection. It is normal to have swelling and bruising at the surgical site, as well as above and below the surgical site. You may resume use of herbal and OTC medications in 2 weeks. Call the Clinic with questions or concerns - [phone] and leave a message for the nurse. - Discharge Plan *PRESCRIPTION DRUG MONITORING PROGRAM REVIEWED*: Yes *COPY OF PRESCRIPTION DRUG MONITORING REPORT IN PATIENT MAEGAN: Not Applicable Prescriptions/Med Rec: Docusate Sodium [Colace] 100 mg PO BID #60 cap Aspirin [Ecotrin EC] 325 mg PO BID #70 tab.ec Cyclobenzaprine [Flexeril] 10 mg PO BID PRN #20 tablet PRN Reason: Spasms Acetaminophen/HYDROcodone [[place] 325-5 MG] 1 - 2 tab PO Q4H PRN #60 tablet PRN Reason: Pain Famotidine [Pepcid] 20 mg PO Q12H #60 tablet Home Medications: Home Meds Cholecalciferol (Vitamin D3) [Vitamin D3] 1,000 unit PO BID 06/03/19 [History] Melatonin 3 mg PO DAILY 06/03/19 [History] Multivitamin [Daily Multiple Vitamin] 1 tab PO DAILY 06/03/19 [History] atorvaSTATin Calcium [Lipitor] 20 mg PO BEDTIME 06/03/19 [History] Acetaminophen/HYDROcodone [[place] 325-5 MG] 1 - 2 tab PO Q4H PRN #60 tablet 02/03/20 [Rx] Aspirin [Ecotrin EC] 325 mg PO BID #70 tab.ec 02/03/20 [Rx] Cyclobenzaprine [Flexeril] 10 mg PO BID PRN #20 tablet 02/03/20 [Rx] Docusate Sodium [Colace] 100 mg PO BID #60 cap 02/03/20 [Rx] Famotidine [Pepcid] 20 mg PO Q12H #60 tablet 02/03/20 [Rx] Magnesium Hydroxide [Milk of Magnesia] 30 ml PO BID PRN cup 02/03/20 [Rx] Sennosides [Senna] 8.6 mg PO BID PRN tablet 02/03/20 [Rx] bisacodyL [Dulcolax] 5 mg PO DAILY PRN tablet 02/03/20 [Rx] Patient Handouts: Total Hip Replacement, Anterior, Care After Forms: ED Department Discharge Referrals: Maisha Zepeda MD [Primary Care Provider] - Fozia Burk PA-C [Physician Office Workforce Planner] - (Thursday02-08-2020 at 11:15am) - Discharge Summary/Plan Comment DC Time >30 min.: No - Patient Data Vitals - Most Recent: Last Vital Signs Temp 37.6 C 02/04/20 10:51 Pulse 94 02/04/20 09:10 Resp 15 02/04/20 11:00 BP 123/72 02/04/20 09:10 Pulse Ox 99 02/04/20 11:00 Weight - Most Recent: 74.843 kg Med Orders - Current: Current Medications Discontinued Medications Acetaminophen (Tylenol) 975 mg PO ONETIME STA Stop: 02/03/20 11:49 Last Admin: 02/03/20 12:00 Dose: 975 mg Documented by: Aspirin (Ecotrin) 325 mg PO BID [facility] Last Admin: 02/04/20 09:00 Dose: 325 mg Documented by: Bisacodyl (Dulcolax) 5 mg PO DAILY PRN PRN Reason: Constipation Bupivacaine HCl (Sensorcaine-Mpf 0.25%) Confirm Administered Dose 30 ml .ROUTE .STK-MED ONE Stop: 02/03/20 11:04 Last Admin: 02/03/20 13:31 Dose: 30 ml Documented by: Bupivacaine HCl (Sensorcaine-Mpf 0.75%) Confirm Administered Dose 30 ml .ROUTE .STK-MED ONE Stop: 02/03/20 11:39 Cefazolin Sodium (Ancef) Confirm Administered Dose 2 gm .ROUTE .STK-MED ONE Stop: 02/03/20 11:04 Cefazolin Sodium (Ancef) Confirm Administered Dose 2 gm .ROUTE .STK-MED ONE Stop: 02/03/20 11:42 Last Admin: 02/03/20 13:27 Dose: 2 gm Documented by: Cholecalciferol (Vitamin D3) 25 mcg PO BID [facility] Last Admin: 02/04/20 09:18 Dose: Not Given Documented by: Morphine Sulfate 8 mg/Epinephrine HCl 0.3 mg/Cefuroxime Sodium 750 mg/Ketorolac Tromethamine 30 mg/Sodium Chloride 7.9 ml 0 mg .XX ASDIRECTED PRN PRN Reason: Pain Stop: 02/03/20 16:00 Last Admin: 02/03/20 13:32 Dose: 788.3 mg Documented by: Cyclobenzaprine HCl (Flexeril) 10 mg PO ONETIME ONE Stop: 02/02/20 18:07 Last Admin: 02/02/20 18:27 Dose: 10 mg Documented by: Cyclobenzaprine HCl (Flexeril) 10 mg PO TID PRN PRN Reason: Spasms Diphenhydramine HCl (Benadryl) 25 mg IVPUSH Q6H PRN PRN Reason: Pruritis Stop: 02/03/20 18:00 Docusate Sodium (Colace) 100 mg PO BID [facility] Last Admin: 02/04/20 09:18 Dose: Not Given Documented by: Epinephrine HCl (Adrenalin) Confirm Administered Dose 1 mg .ROUTE .STK-MED ONE Stop: 02/03/20 11:42 Famotidine (Pepcid) 20 mg PO Q12H [facility] Last Admin: 02/04/20 09:00 Dose: 20 mg Documented by: Fentanyl (Sublimaze) Confirm Administered Dose 100 mcg .ROUTE .STK-MED ONE Stop: 02/03/20 11:37 Fentanyl (Sublimaze) 50 mcg IVPUSH Q5M PRN PRN Reason: Pain Stop: 02/03/20 18:00 Glycopyrrolate () Confirm Administered Dose 1 mg .ROUTE .STK-MED ONE Stop: 02/03/20 15:15 Hydromorphone HCl (Dilaudid) 0.5 mg IVPUSH ONETIME ONE Stop: 02/02/20 18:32 Last Admin: 02/02/20 18:37 Dose: 0.5 mg Documented by: Hydromorphone HCl (Dilaudid) 0.5 mg IVPUSH Q2H PRN PRN Reason: Pain Last Admin: 02/03/20 04:41 Dose: 0.5 mg Documented by: Dextrose/Sodium Chloride (Dextrose 5%-Normal Saline) 1,000 mls @ 125 mls/hr IV ASDIRECTED [facility] Last Admin: 02/02/20 19:51 Dose: 125 mls/hr Documented by: Potassium Chloride/Dextrose/Sod Cl (D5 Ns With 20 Meq Kcl) 1,000 mls @ 100 mls/hr IV ASDIRECTED [facility] Last Admin: 02/03/20 05:19 Dose: 100 mls/hr Documented by: Cefazolin Sodium/Dextrose 2 gm (/ Premix) 50 mls @ 100 mls/hr IV Q8H [facility] Stop: 02/04/20 12:29 Last Admin: 02/04/20 11:40 Dose: 100 mls/hr Documented by: Lactated Ringer's (Ringers, Lactated) 1,000 mls @ 500 mls/hr IV ONETIME ONE Stop: 02/03/20 23:14 Last Admin: 02/03/20 21:26 Dose: 500 mls/hr Documented by: Iodine (Iodine 2% Mild Tincture) Confirm Administered Dose 30 ml .ROUTE .STK-MED ONE Stop: 02/03/20 11:04 Last Admin: 02/03/20 13:26 Dose: 18 ml Documented by: Ketamine HCl (Ketalar) Confirm Administered Dose 500 mg .ROUTE .STK-MED ONE Stop: 02/03/20 11:46 Ketorolac Tromethamine (Toradol) 15 mg IVPUSH Q6H PRN PRN Reason: Pain Last Admin: 02/04/20 12:08 Dose: 15 mg Documented by: Magnesium Hydroxide (Milk Of Magnesia) 30 ml PO BID PRN PRN Reason: Constipation Melatonin (Melatonin) 6 mg PO BEDTIME PRN PRN Reason: Insomnia Melatonin (Melatonin) 3 mg PO BEDTIME PRN PRN Reason: Insomnia Midazolam HCl (Versed 1 Mg/Ml) Confirm Administered Dose 2 mg .ROUTE .STK-MED ONE Stop: 02/03/20 11:37 Miscellaneous Medication (Phenylephrine 1 Mg/10 Ml-Ns) Confirm Administered Dose 1 mg IV .STK-MED ONE Stop: 02/03/20 12:23 Morphine Sulfate (Morphine) 1 - 2 mg IVPUSH Q2H PRN PRN Reason: Pain (severe 7-10) Morphine Sulfate (Duramorph Pf) Confirm Administered Dose 10 mg .ROUTE .STK-MED ONE Stop: 02/03/20 11:39 Multivitamins (Thera) 1 each PO DAILY [facility] Last Admin: 02/04/20 09:18 Dose: Not Given Documented by: Naloxone HCl (Narcan) 0.1 mg IVPUSH Q5M PRN PRN Reason: Oversedation Ondansetron HCl (Zofran Odt) 4 mg PO ONETIME ONE Stop: 02/02/20 18:32 Last Admin: 02/02/20 18:37 Dose: 4 mg Documented by: Ondansetron HCl (Zofran) 4 mg IVPUSH Q4H PRN PRN Reason: Nausea Ondansetron HCl (Zofran) 4 mg IVPUSH Q6H PRN PRN Reason: Nausea/Vomiting Ondansetron HCl (Zofran) 4 mg IVPUSH ONETIME PRN PRN Reason: Nausea/Vomiting Stop: 02/03/20 18:00 Ondansetron HCl (Zofran) Confirm Administered Dose 8 mg .ROUTE .STK-MED ONE Stop: 02/03/20 13:27 Oxycodone HCl (Oxycontin) 10 mg PO ONETIME STA Stop: 02/03/20 11:50 Last Admin: 02/03/20 12:01 Dose: 10 mg Documented by: Oxycodone/Acetaminophen (Percocet 325-5 Mg) 1 - 2 tab PO Q4H PRN PRN Reason: Pain Pregabalin (Lyrica) 50 mg PO DAILY STA Stop: 02/03/20 11:49 Last Admin: 02/03/20 12:00 Dose: 50 mg Documented by: Propofol (Diprivan 20 Ml) Confirm Administered Dose 600 mg .ROUTE .STK-MED ONE Stop: 02/03/20 11:37 Senna (Senna) 8.6 mg PO BID PRN PRN Reason: Constipation Simvastatin (Zocor) 20 mg PO BEDTIME [facility] Last Admin: 02/03/20 22:28 Dose: Not Given Documented by: Tranexamic Acid (Cyklokapron) Confirm Administered Dose 1,000 mg .ROUTE .STK-MED ONE Stop: 02/03/20 11:04 Last Admin: 02/03/20 13:34 Dose: 1,000 mg Documented by: Vancomycin HCl (Vancomycin) Confirm Administered Dose 1 gm .ROUTE .STK-MED ONE Stop: 02/03/20 11:04 Last Admin: 02/03/20 13:33 Dose: 1 gm Documented by: Zolpidem Tartrate (Ambien) 10 mg PO BEDTIME LOVE Zolpidem Tartrate (Ambien) 10 mg PO BEDTIME LOVE Last Admin: 02/02/20 22:56 Dose: 10 mg Documented by:
--- NOTE | 2020-02-06 07:13 | PCM.OPNOTE ---
- General Post-Op/Procedure Note Date of Surgery/Procedure: 02/03/20 Operative Procedure(s): left total hip arthroplasty Pre Op Diagnosis: displaced left femoral neck fracture Post-Op Diagnosis: Same Anesthesia Technique: Local, MAC, Spinal Primary Surgeon: Robert Bragg Anesthesia Provider: José Hicks Tool Design Checker: Fozia Burk Tool Design Checker: Mabel Santoro EBL in mLs: 450 Complications: None Condition: Good Free Text/Narrative:: 5 stem 52 cup 28-2.7 mdm components
--- NOTE | 2020-02-06 22:56 | OR ---
DATE OF OPERATION: 02/03/2020 SURGEON: Robert Bragg MD OPERATION PERFORMED: Left total hip arthroplasty. PREOPERATIVE DIAGNOSIS: Displaced left femoral neck fracture. POSTOPERATIVE DIAGNOSIS: Displaced left femoral neck fracture. ANESTHESIA: Local MAC with spinal. ANESTHESIA PROVIDER: Alyson Camacho. CLOTH BLEACHING RANGE BACK TENDER: Fozia Burk PA-C, and Mabel Santoro LPN. ESTIMATED BLOOD LOSS: 450 mL. COMPLICATIONS: None. CONDITION: Stable. IMPLANT: 1. [place] size 5 Accolade II stem. 2. [place] size 52 mm solid Tritanium II acetabular cup. 3. [place] size 28 -2.7 MDM component. DESCRIPTION OF PROCEDURE: The patient was identified in the preoperative holding area. Proper site was marked and identified by the surgeon. The patient was taken back to the operating theater, where after adequate anesthesia, the patient was placed in the right lateral decubitus position. The gluteal fold was parallel to the floor. A well-padded left hip was then sterilely prepped and draped in the usual sterile fashion. OR time-out was performed. The patient received 2 g of IV Ancef. Standard posterior incision was made centered over the greater trochanter. This was taken down through the IT band and gluteal fascia. Charnley retractor was then placed. Short external rotators were identified and takedown of the short external rotators was done from the level of the piriformis down to the lesser trochanter and capsulotomy was performed at this time as well. Hip was then dislocated. The fracture site was identified and we did attempt to dislocate the fracture site with the neck. It did subsequently disassociate, so we did a clean-up neck cut at this time, then I used a corkscrew for removal of the femoral head. This was sized on the back table. Anterior and posterior acetabular retractors were then placed. Circumferential removal of the labrum was done at this time as well as removal of the pulvinar. Starting with a 48 reamer, I was able to ream up to a 52 which had good purchase of cancellous bone. A 52 mm solid Tritanium II acetabular cup was then impacted in place in anatomic position and the MDM liner was kept into place and was found to be adequate. Attention was turned to the femur. Box chisel was used out laterally. Starter awl was placed down the canal. Starting with the 0 broach, I was able to broach up to a size 5 which was found to be rotationally and vertically stable. A trial neck and then head were then placed. -2.7 had adequate protestant of leg lengths and was stable throughout range of motion. Bone hook was used to dislocate the hip. Trial implants were then removed and a size 5 Accolade II stem was impacted into place. The MDM components of the 42/28 -2.7 were constructed on the back table and impacted on to the stem. The hip was then relocated. #5 Ethibond suture was used for closure of the short external rotators and capsule. 1 L dilute Betadine solution was irrigated through the hip along with 3 L pulse lavage irrigation with Ancef. Topical tranexamic acid and vancomycin powder were applied. A #2 barbed suture was used for closure of IT band and gluteal fascia. 2-0 Vicryl was used subcutaneously and Prineo was used for the skin. The patient had a sterile soft dressing applied and was sent to PACU in stable condition. MMODAL /[id number]
--- NOTE | 2020-02-07 16:50 | PCM.HP.2 ---
H&P History of Present Illness - General Date of Service: 02/03/20 Admit Problem/Dx: Admission Diagnosis/Problem Admission Diagnosis/Problem Hip fracture requiring operative repair Source of Information: Patient History Limitations: Reports: No Limitations Left Groin Pain Score (Numeric/FACES): 5 - Related Data Allergies/Adverse Reactions: Allergies Allergy/AdvReac Type Severity Reaction Status Date / Time No Known Allergies Allergy Verified 02/03/20 00:07 Home Medications: Home Meds Cholecalciferol (Vitamin D3) [Vitamin D3] 1,000 unit PO BID 06/03/19 [History] Melatonin 3 mg PO DAILY 06/03/19 [History] Multivitamin [Daily Multiple Vitamin] 1 tab PO DAILY 06/03/19 [History] atorvaSTATin Calcium [Lipitor] 20 mg PO BEDTIME 06/03/19 [History] Acetaminophen/HYDROcodone [[place] 325-5 MG] 1 - 2 tab PO Q4H PRN #60 tablet 02/03/20 [Rx] Aspirin [Ecotrin EC] 325 mg PO BID #70 tab.ec 02/03/20 [Rx] Cyclobenzaprine [Flexeril] 10 mg PO BID PRN #20 tablet 02/03/20 [Rx] Docusate Sodium [Colace] 100 mg PO BID #60 cap 02/03/20 [Rx] Famotidine [Pepcid] 20 mg PO Q12H #60 tablet 02/03/20 [Rx] Magnesium Hydroxide [Milk of Magnesia] 30 ml PO BID PRN cup 02/03/20 [Rx] Sennosides [Senna] 8.6 mg PO BID PRN tablet 02/03/20 [Rx] bisacodyL [Dulcolax] 5 mg PO DAILY PRN tablet 02/03/20 [Rx] Past Medical History HEENT History: Reports: Impaired Vision, Other (See Below) Other HEENT History: glasses Cardiovascular History: Reports: High Cholesterol Respiratory History: Reports: None Other Respiratory History: Chronic cough d/t sinuses Gastrointestinal History: Reports: Gastritis Genitourinary History: Reports: None CONSERVATION WORKER History: Reports: None Other OB/BYN History: Previous pregnancies x2 Musculoskeletal History: Reports: Arthritis Neurological History: Reports: None Psychiatric History: Reports: None Endocrine/Metabolic History: Reports: Vitamin D Deficiency Hematologic History: Reports: None, Idiopathic Thrombocytopenia (Platelet count about 3 years ago was 90,000. As low as it ever went was down to 30,000.) Immunologic History: Reports: None Oncologic (Cancer) History: Reports: None Dermatologic History: Reports: Other (See Below) Other Dermatologic History: seborrheic keratosis - Infectious Disease History Infectious Disease History: Reports: Chicken Pox, Measles - Past Surgical History Head Surgeries/Procedures: Reports: None Cardiovascular Surgical History: Reports: None Respiratory Surgical History: Reports: None GI Surgical History: Reports: None Female Surgical History: Reports: Hysterectomy Endocrine Surgical History: Reports: None Neurological Surgical History: Reports: None Musculoskeletal Surgical History: Reports: Arthroscopic Knee Oncologic Surgical History: Reports: None Dermatological Surgical History: Reports: None Social & Family History - Family History Family Medical History: Noncontributory - Tobacco Use Smoking Status *Q: Never Smoker - Caffeine Use Caffeine Use: Reports: Coffee, Soda, Tea - Recreational Drug Use Recreational Drug Use: No - Living Situation & Occupation Living situation: Reports: Occupation: Employed H&P Review of Systems - Review of Systems: Review Of Systems: See Below (As per ED documentation.) Exam - Vital Signs Vital Signs: Last Vital Signs Temp 99.6 F 02/04/20 10:51 Pulse 94 02/04/20 09:10 Resp 15 02/04/20 11:00 BP 123/72 02/04/20 09:10 Pulse Ox 99 02/04/20 11:00 Weight: 165 lb - Exam General: Alert, Oriented, Cooperative Lungs: Normal Respiratory Effort Extremities: Other (WFL ROM RLE. Left hip pain with motion. Left knee nontender. NVS intact for BLE. Active left ankle motion noted.) - Patient Data Result Diagrams: 02/04/20 05:32 02/04/20 05:32 Sepsis Event Note - Evaluation Sepsis Screening Result: No Definite Risk Problem List Initiated/Reviewed/Updated: Yes Assessment/Plan Comment:: ASSESSMENT: Left subcapital hip fracture. PLAN: The pt has left subcapital hip fx and has been admitted to Hospital. The pt has been offered CHETAN. The risks, benefits, goals and alternatives to the procedure were discussed with the patient. Risks include, but are not limited to, bleeding, pain, infection, damage to surrounding structures including blood vessels and nerves, need for additional procedures, VTE, TX, CVA, and those risks inherent to the use of medications and anesthesia. The expected post-operative protocol was also discussed. The pt verbalized understanding of the risks of the procedure and wished to proceed with the procedure. The pt will have MRSA and Covid screening obtained as per Hospital protocol. The pt will have pre-operative eval with Hospitalist service to optimize her for surgery planned later today. The pt will remain NPO, bedrest. The pt verbalized understanding of what was discussed and was in agreement to the above plan of care. The pt was evaluated by Dr. Bragg and MD developed plan of care.
== END 2020-02-04 14:17 | disposition home or self-care (01) | DRG 301 ==
LOC: JD.ED 16:30 → JD.OB 19:36 → OBSVTOIN 02-03 08:20
PROVIDERS: ADMIT Orthopaedic Surgery; ATTEND Orthopaedic Surgery
PROC: 0SRB0JZ Replacement of Left Hip Joint with Synthetic Substitute, Open Approach (ICD-10-PCS; principal; 2020-02-03)
DX: S72.002A Fracture of unspecified part of neck of left femur, initial encounter for closed fracture (principal); Z20.828 Contact with and (suspected) exposure to other viral communicable diseases; H54.7 Unspecified visual loss; E78.00 Pure hypercholesterolemia, unspecified; M19.90 Unspecified osteoarthritis, unspecified site; E55.9 Vitamin D deficiency, unspecified; D69.3 Immune thrombocytopenic purpura; L82.1 Other seborrheic keratosis; Z90.710 Acquired absence of both cervix and uterus; Z79.899 Other long term (current) drug therapy; M85.80 Other specified disorders of bone density and structure, unspecified site; W10.9XXA Fall (on) (from) unspecified stairs and steps, initial encounter
CPT/HCPCS: 01214; 36415; 51701; 71045; 71045-26; 72170; 72170-26; 73501-26-LT; 73501-LT; 73552-26-LT; 73552-LT; 80048; 80053; 80061; 82550; 83036; 83735; 83880; 84484; 85025; 85027; 85610; 85730; 86140; 86850; 86900; 86901; 87641; 94762; 96361; 96374; 96376; 97110-GP; 97161-GP; 97165-GO; 99222; 99231; 99284-25; 99285; A9270-GY; C1776; G0378; J0171; J0690; J0697; J1170; J1885; J2250; J2270; J2370; J2405; J2704; J3010; J3370; J3480; J3490; J7042; J7120; U0002

== ENCOUNTER → 2021-11-18 | Day surgery (SDC) | payer BC ==
[~2021-11-18] MED LIST changes: +Acetaminophen 325 MG Tab PO SCH; +Bupivacaine 0.25% 10 ML SDV ONE; +EPINEPHrine 1 MG/ML SDV ONE; +HYDROmorphone 0.5 MG/0.5 ML Syringe IVPUSH PRN; +Lactated Ringers 1,000 ML ONE; +Lidocaine 1% 0 ML ONE; -Lidocaine 1% 4 ML ONE; +Morphine 8 MG, EPINEPHrine 0.3 MG, Cefuroxime 750 MG, Ketorolac 30 MG, Sodium Chloride ... PRN; +Ondansetron 4 MG/2 ML SDV IVPUSH PRN; +Ondansetron 4 MG/2 ML SDV ONE; +Pregabalin 25 MG Cap PO SCH; +Ropivacaine 0.5% 5 MG/ML 30 ML SDV ONE; +Sodium Chloride 0.9% 10 ML Syringe FLUSH SCH; +Triamcinolone Acetonide 40 MG/ML 1 ML SDV ONE; +Vancomycin 1 GM SDV ONE; +ceFAZolin 1 GM Vial ONE; +ePHEDrine 50 MG/ML SDV ONE; +fentaNYL 100 MCG/2 ML SDV IVPUSH PRN; -fentaNYL 100 MCG/2 ML SDV ONE; +oxyCODONE ER 10 MG TAB.ER PO SCH
== END | disposition home or self-care (01) ==
LOC: JD.SDS 07:39
PROVIDERS: ATTEND Orthopaedic Surgery
DX: M17.0 Bilateral primary osteoarthritis of knee (principal); E78.00 Pure hypercholesterolemia, unspecified; E55.9 Vitamin D deficiency, unspecified; D69.6 Thrombocytopenia, unspecified; M19.90 Unspecified osteoarthritis, unspecified site; H54.7 Unspecified visual loss; Z79.899 Other long term (current) drug therapy
CPT/HCPCS: 0055T; 20610; 27447; 36415; 73560; 85025; 97116; 97161; A9270; C1713; C1776; J0171; J0690; J0697; J1885; J2250; J2270; J2405; J2704; J2795; J3301; J3370; J3490; J7120; 01402; 64450; 76942

== ENCOUNTER 2022-04-17 16:01 | Day surgery (SDC) | payer BC ==
[2022-04-17] MEDS ORDERED: HYDROmorphone 0.5 MG/0.5 ML Syringe IVPUSH ONE (16:23)
[2022-04-17] MEDS: HYDROmorphone 0.5 MG/0.5 ML Syringe IVPUSH PRN ×3 (19:13→22:52)
[2022-04-17] MEDS ORDERED: Sodium Chloride 0.9% 1,000 ML IV STA (19:25)
[2022-04-17] MEDS ORDERED: Cyclobenzaprine 10 MG Tab PO ONE (19:40)
[2022-04-18] MEDS: HYDROmorphone 0.5 MG/0.5 ML Syringe IVPUSH PRN ×2 (04:32→09:26)
[2022-04-18] MEDS ORDERED: Morphine 8 MG, EPINEPHrine 0.3 MG, Cefuroxime 750 MG, Ketorolac 30 MG, Sodium Chloride ... PRN ×5 (10:18)
[2022-04-18] MEDS ORDERED: Pregabalin 25 MG Cap PO STA (10:26)
[2022-04-18] MEDS ORDERED: oxyCODONE ER 10 MG TAB.ER PO ONE (10:26)
[2022-04-18] MEDS ORDERED: Acetaminophen 325 MG Tab PO ONE (10:27)
[2022-04-18] MEDS ORDERED: fentaNYL 100 MCG/2 ML SDV ONE (11:07)
[2022-04-18] MEDS ORDERED: Midazolam 1 MG/ML 2 ML SDV ONE (11:07)
[2022-04-18] MEDS ORDERED: Lidocaine 1% 5 ML VIAL ONE (11:07)
[2022-04-18] MEDS ORDERED: Propofol 200 MG/20 ML SDV ONE ×2 (11:07→13:38)
[2022-04-18] MEDS ORDERED: Ketamine 500 mg/10 ML MDV ONE (11:08)
[2022-04-18] MEDS ORDERED: ceFAZolin 2 GM Vial ONE (11:08)
[2022-04-18] MEDS ORDERED: Lactated Ringers 1,000 ML ONE ×2 (11:36)
[2022-04-18] MEDS ORDERED: Phenylephrine HCl In 0.9% NaCl 1 MG/10 ML Vial ONE (12:12)
[2022-04-18] MEDS ORDERED: HYDROmorphone 0.5 MG/0.5 ML Syringe IVPUSH PRN (12:46)
[2022-04-18] MEDS ORDERED: Ondansetron 4 MG/2 ML SDV IVPUSH PRN (12:46)
[2022-04-18] MEDS ORDERED: fentaNYL 100 MCG/2 ML SDV IVPUSH PRN (12:46)
[2022-04-18] MEDS ORDERED: Lactated Ringers 500 ML ONE (13:00)
[2022-04-18] MEDS ORDERED: Dexamethasone 4 MG/ML 5 ML MDV ONE (13:01)
[2022-04-18] MEDS: Tranexamic Acid 1,000 MG/10 ML Vial ONE ×2 (13:02→13:25)
[2022-04-18] MEDS ORDERED: Ondansetron 4 MG/2 ML SDV ONE (13:02)
[2022-04-18] MEDS ORDERED: Ketorolac 30 MG/ML SDV ONE (13:02)
[2022-04-18] MEDS: Morphine 8 MG, EPINEPHrine 0.3 MG, Cefuroxime 750 MG, Ketorolac 30 MG, Sodium Chloride ... PRN ×10 (13:03→13:25)
[2022-04-18] MEDS: Vancomycin 1 GM SDV ONE ×2 (13:03→13:25)
[2022-04-18] MEDS ORDERED: oxyCODONE 5 MG Tab PO PRN (14:34)
== END 2022-04-18 16:22 | disposition home or self-care (01) ==
LOC: JD.ED 16:01 → JD.SDS 04-18 10:27
PROVIDERS: ATTEND Orthopaedic Surgery
DX: S72.002A Fracture of unspecified part of neck of left femur, initial encounter for closed fracture (principal); E55.9 Vitamin D deficiency, unspecified; E78.00 Pure hypercholesterolemia, unspecified; M19.90 Unspecified osteoarthritis, unspecified site; D69.3 Immune thrombocytopenic purpura; Z79.899 Other long term (current) drug therapy; Z90.49 Acquired absence of other specified parts of digestive tract; Z98.890 Other specified postprocedural states; Z90.710 Acquired absence of both cervix and uterus; Z96.642 Presence of left artificial hip joint
CPT/HCPCS: 01214; 36415; 73501-26-RT; 73501-RT; 73502-26-RT; 73502-RT; 73700-26-RT; 73700-RT; 80053; 85025; 87641; 96361; 96374; 96376; 97161-GP; 99284; 99285-25; A9270-GY; C1713; C1776; J0171; J0690; J0697; J1100; J1170; J1885; J2250; J2270; J2405; J2704; J3010; J3370; J3490; J7030; J7120

== ENCOUNTER 2022-08-18 07:32 | Day surgery (SDC) | payer BC ==
[~2022-08-18 07:32] MED LIST changes: -Bupivacaine 0.25% 10 ML SDV ONE; -EPINEPHrine 1 MG/ML SDV ONE; -HYDROmorphone 0.5 MG/0.5 ML Syringe IVPUSH PRN; -Lactated Ringers 1,000 ML ONE; -Lidocaine 1% 0 ML ONE; -Midazolam 1 MG/ML 2 ML SDV ONE; -Ondansetron 4 MG/2 ML SDV IVPUSH PRN; -Ondansetron 4 MG/2 ML SDV ONE; -Propofol 200 MG/20 ML SDV ONE; -Ropivacaine 0.5% 5 MG/ML 30 ML SDV ONE; -Triamcinolone Acetonide 40 MG/ML 1 ML SDV ONE; -Vancomycin 1 GM SDV ONE; -ceFAZolin 1 GM Vial ONE; -ePHEDrine 50 MG/ML SDV ONE; -fentaNYL 100 MCG/2 ML SDV IVPUSH PRN
[2022-08-18] MEDS ORDERED: EPINEPHrine 1 MG/ML SDV ONE (08:08)
[2022-08-18] MEDS ORDERED: Ropivacaine 0.5% 5 MG/ML 30 ML SDV ONE (08:08)
[2022-08-18] MEDS ORDERED: fentaNYL 100 MCG/2 ML SDV ONE (08:21)
[2022-08-18] MEDS ORDERED: Lactated Ringers 1,000 ML ONE (08:21)
[2022-08-18] MEDS ORDERED: ceFAZolin 2 GM Vial ONE (08:21)
[2022-08-18] MEDS ORDERED: Midazolam 1 MG/ML 2 ML SDV ONE (08:21)
[2022-08-18] MEDS ORDERED: Propofol 200 MG/20 ML SDV ONE (08:22)
[2022-08-18] MEDS ORDERED: ePHEDrine 50 MG/ML SDV ONE (09:08)
[2022-08-18] MEDS ORDERED: Phenylephrine HCl In 0.9% NaCl 1 MG/10 ML Vial ONE ×2 (09:21→10:42)
[2022-08-18] MEDS ORDERED: HYDROmorphone 0.5 MG/0.5 ML Syringe IVPUSH PRN (09:31)
[2022-08-18] MEDS ORDERED: Ondansetron 4 MG/2 ML SDV IVPUSH PRN (09:31)
[2022-08-18] MEDS ORDERED: fentaNYL 100 MCG/2 ML SDV IVPUSH PRN (09:31)
[2022-08-18] MEDS: Tranexamic Acid 1,000 MG/10 ML Vial ONE ×2 (09:33→10:02)
[2022-08-18] MEDS: Vancomycin 1 GM SDV ONE ×2 (09:34→10:03)
[2022-08-18] MEDS ORDERED: oxyCODONE 5 MG Tab PO PRN (10:36)
[2022-08-18] MEDS ORDERED: Dexmedetomidine 200 MCG/2 ML SDV ONE (10:39)
== END 2022-08-18 12:55 | disposition home or self-care (01) ==
LOC: JD.SDS 07:32
PROVIDERS: ATTEND Orthopaedic Surgery
DX: M17.12 Unilateral primary osteoarthritis, left knee (principal); G89.29 Other chronic pain; E78.5 Hyperlipidemia, unspecified; M81.0 Age-related osteoporosis without current pathological fracture; D69.6 Thrombocytopenia, unspecified; Z79.899 Other long term (current) drug therapy
CPT/HCPCS: 0055T; 27447; 64447; 73560; A9270; C1713; C1776; J0171; J0690; J0697; J1885; J2250; J2270; J2704; J2795; J3010; J3370; J7120; 01402; 64450; J3490